=== PATIENT | female | born 1950 | race Caucasian/White ===

== ENCOUNTER 2016-11-23 06:55 | Inpatient (IN) | payer MEDICARE ==
[~2016-11-23] VITALS: Ht 157.5 cm; Wt 67.7 kg
[2016-11-23] VITALS (7 sets, daily range): BP systolic 146–180; BP diastolic 75–99
[~2016-11-23 06:55] MED LIST: /BACL20TA OR; /ESOM40CA OR; ACET65TA OR; ACTOPLUS MET 15/850 PO; AMBI5TAB OR; AMIT25TA2 OR; AMLO5TAB2 PO; ASPI81TA83 OR; CHLORTHALIDONE PO; CYMBALTA PO; DIOV160T5 OR; GLUC1000 OR; HALO5OI EXT; JANU100T PO; LOSA100T36 PO; METF500T PO; METO100T3 PO; MILKSUS OR; ONGL5TAB PO; REBIF SC; SIMV20TA2 OR; TOPRAL XL PO; VITAMIN D PO; ZETI10TA21 PO
[2016-11-23 07:44] LABS: BASO # 0.1 K/mm3 (0.0-0.2); BASO % 0.8 % (0.0-1.0); EOS # 0.2 K/mm3 (0.0-0.50); EOS % 2.5 % (0.0-3.0); LARGE UNSTAINED CELL # 0.2 K/mm3 (0.0-0.4); LARGE UNSTAINED CELL % 1.7 % (0.0-4.0); LYMPH # 1.8 K/mm3 (1.5-4.5); LYMPH % 19.9 % (24.0-44.0); MEAN CORPUSCULAR HEMOGLOBIN 30.2 pg (27.0-33.0); MEAN CORPUSCULAR HGB CONC 33.6 g/dl (32.0-36.5); MEAN CORPUSCULAR VOLUME 89.9 fl (80.0-96.0); MONO # 0.4 K/mm3 (0.0-0.8); MONO % 3.9 % (0.0-5.0); NEUTROPHILS # 6.3 K/mm3 (1.8-7.7); NEUTROPHILS % 71.2 % (36.0-66.0); PLATELET COUNT, AUTOMATED 244 k/mm3 (150-450); RED CELL DISTRIBUTION WIDTH 13.3 % (11.5-14.5); WHITE BLOOD COUNT 8.9 K/mm3 (4.0-10.0)
[2016-11-23 07:57] LABS: ANION GAP 11 MEQ/L (8-16); BLOOD UREA NITROGEN 14 MG/DL (7-18); CALCIUM LEVEL 9.6 MG/DL (8.8-10.2); CARBON DIOXIDE LEVEL 30 MEQ/L (21-32); CHLORIDE LEVEL 98 MEQ/L (98-107); CREATININE FOR GFR 1.39 MG/DL (0.55-1.02); GLOMERULAR FILTRATION RATE 40.3 (>45); GLUCOSE, FASTING 288 MG/DL (80-110); POTASSIUM SERUM 3.2 MEQ/L (3.5-5.1); SODIUM LEVEL 139 MEQ/L (136-145)
--- NOTE | 2016-11-23 08:40 | REP ---
Clinical: Chest pain. Comparison: 10/01/2015. Findings: Visualized mediastinum and cardiac silhouette are within normal limits and stable. Linear acute/chronic fibroatelectatic changes at the right base require correlation. The lung sepulveda are otherwise clear and without further consolidation, effusion, or pneumothorax. Skeletal structures intact. Impression: Acute versus chronic linear markings at the right lung base. Signed by Harley Merrill MD 11/23/2016 08:31 A
--- NOTE | 2016-11-23 08:42 | REP ---
Clinical: Syncope . Comparison: 12/06/2013. Findings: The ventricles, sulci, and cisterns are normal in position and appearance. Esparza-white differentiation is maintained. No acute intracranial hemorrhage, mass/mass effect, pathology or trauma/injury. No evidence for acute infarction. No extra-axial fluid collection. Calvarium is intact. Paranasal sinuses and mastoid air cells are clear. Impression: Normal noncontrast head CT. No evidence for acute intracranial pathology or trauma/injury. Signed by Harley Merrill MD 11/23/2016 08:34 A
[2016-11-23] MEDS: BACLOFEN 10 MG TAB PO SCH ×2 (09:00→20:25)
[2016-11-23] MEDS ORDERED: INDA125TA PO (09:56)
[2016-11-23] MEDS ORDERED: METF500T PO ×2 (09:56)
[2016-11-23] MEDS ORDERED: NEXI40CA PO (09:56)
[2016-11-23] MEDS ORDERED: LOSA100T36 PO (09:56)
[2016-11-23] MEDS ORDERED: BACL-67 PO (09:56)
[2016-11-23] MEDS ORDERED: ZETI10TA2 PO (09:56)
[2016-11-23] MEDS ORDERED: AMIT50TA PO (09:56)
[2016-11-23] MEDS ORDERED: METO-209 PO (09:56)
[2016-11-23] MEDS ORDERED: CYMB60CA3 PO (09:56)
--- NOTE | 2016-11-23 10:13 | ECGEPIP ---
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
[2016-11-23] MEDS ORDERED: DEXTROSE 50% 50 ML SYRINGE IV PRN (11:15)
[2016-11-23] MEDS ORDERED: GLUCAGON FOR INJ 1 MG VIAL (J1610) SC PRN (11:15)
[2016-11-23] MEDS ORDERED: GLUCOSE 4 GM CHEW TABLET PO PRN (11:15)
[2016-11-23] MEDS ORDERED: POTASSIUM CHLORIDE 10 MEQ SR TABLET PO ONE (11:15)
[2016-11-23] MEDS: HumaLOG INSULIN (NovoLOG) PER UNIT SC SCH ×3 (12:00→20:26)
--- NOTE | 2016-11-23 13:43 | HPE ---
DATE OF ADMISSION: 11/23/2016 PRIMARY CARE PROVIDER: Dr. Yonas Vernon PNEUMOLOGIST: Dr. Rutherford CHIEF COMPLAINT: Syncope. HISTORY OF PRESENT ILLNESS: This is a 66-year-old female patient with underlying medical history of type 2 diabetes, gastroesophageal reflux disease (GERD), hypertension, multiple sclerosis, osteoporosis, who presented with two episodes of syncope. As per patient, first episode occurred around a month ago when the patient was walking through the store of a well-known store with . Subsequently patient was standing a bit wobbly for 5-10 minutes. As per patient, she felt like she blacked out and was confused and did not know where she was, and also barely remembered the events. When the transfusion resolved, it took the patient 20-30 minutes to return back to baseline. It happened about a month ago. As per who was with her, the patient did not fall, did not hit the floor, but was standing there confused and not really moving. No urinary or bowel incontinence. Subsequently, the patient this morning on the morning of admission, the patient was getting out of bed, but subsequently was found on the floor in the kitchen by the . She was on the floor with the for approximately 30 minutes. She became more awake when the emergency medical services (EMS) arrived and took the patient under 30 minutes to return to baseline. At baseline, patient ambulates with a cane or walker. Patient denies any headache, lightheadedness. Denies any significant trauma. The did not witness any tonic clonic movement. No history of seizure. No vision change. The patient was warm and well-perfused when the found her. No tongue biting. No urinary or fecal incontinence. In the emergency room, the patient denies any focal weakness or deficit. Denies any focal vision change. Was concerned that she could potentially have a urinary tract infection. In the emergency room, the patient was also found to be mildly orthostatic positive. Patient reported recently started on a diuretic by her doctor for hypertension. Otherwise, patient has no other complaints. Denies any chest pain, pressure, or discomfort. Denies any fevers or chills. ALLERGIES: 1. CODEINE. 2. LEXAPRO. 3. PENICILLIN. 4. PENICILLIN CROSS REACTORS. 5. PROPOXYPHENE. 6. TRAMADOL. 7. AMBIEN. 8. ALENDRONATE. 9. IBUPROFEN. 10. METFORMIN. 11. JANUMET. 12. MEPERIDINE. PAST MEDICAL HISTORY: 1. Type 2 diabetes. 2. Gastroesophageal reflux disease (GERD). 3. Hypertension. 4. Multiple sclerosis. 5. Osteoporosis. PAST SURGICAL HISTORY: 1. Appendectomy. 2. Tubal ligation. 3. Jaw surgery. SOCIAL HISTORY: Patient lives at home, , former smoker quit 14 years ago 2-3 packs per day smoking for 20-30 years. Denies alcohol or illicit drug use. FAMILY HISTORY: Noncontributory, but does report family history of hypothyroidism. REVIEW OF SYSTEMS: Reported three episodes of syncope and confusion. Denies any headache. Reported during the episode the patient's vision blacked out. Denies any hearing change. Denies any nausea or vomiting. Denies any shortness of breath. Denies any chest pain, pressure, of discomfort. Denies any palpitations. Reported stomach upset. Denies any diarrhea or constipation. Has concerns for foul smelling urine. Denies any dysuria or hematuria. Denies lower extremity swelling. Denies depression or suicidality. HOME MEDICATIONS: - amitriptyline 50 mg by mouth at bedtime - baclofen 20 mg by mouth twice a day - Cymbalta 60 mg by mouth daily - Nexium 40 mg by mouth daily - Zetia 10 mg by mouth daily - indapamide 1.25 mg by mouth daily - losartan 100 mg by mouth daily - metformin 500 mg by mouth daily and 1000 mg by mouth every night - metoprolol succinate 100 mg by mouth daily PHYSICAL EXAMINATION: VITAL SIGNS: Blood pressure 120/67, pulse 85, respirations 18, temperature 97.3, pulse oximetry 96% on room air. GENERAL: The patient is alert, and oriented times three in no acute distress. HEENT: Normocephalic, atraumatic. PULMONARY: Bilaterally clear to auscultation. CARDIAC: Regular rate and rhythm; normal S1, S2. ABDOMEN: Soft, nontender, and nondistended. Positive bowel sounds. EXTREMITIES: No edema of bilateral lower extremities. NEUROLOGIC: Cranial nerves II-XII grossly intact. No focal deficits. Able to move all four extremities, orthostatic positive. EKG: Sinus rhythm at 79, left axis deviation. No significant ST segment changes. LABORATORY DATA: WBC 8.9, hemoglobin and hematocrit 12.7/37.7, platelets 244. Chemistry: Sodium 139, potassium 3.2, chloride 98, bicarbonate 30, BUN 14, creatinine 1.39, TSH 5.18, cardiac enzymes negative times one. ASSESSMENT AND PLAN: This is a 66-year-old female patient with underlying medical history of type 2 diabetes, gastroesophageal reflux disease (GERD), hypertension, multiple sclerosis, osteoporosis, who presented status post syncope. 1. Syncope, possibly secondary to a seizure. Neurology consulted. EEG, MRI has been ordered. Neuro checks. Seizure precautions. Fall precautions. Physical therapy. Followup orthostatic vital signs. 2. Orthostatic hypotension, possibly secondary to diuretics and dehydration. IV fluids for hydration. Followup orthostatic vital signs. 3. Hypokalemia. Holding diuretics. Supplement with potassium. 4. Acute kidney injury (CHERYL). IV fluids for hydration. Holding diuretics. Followup BUN and creatinine. 5. Hypertension. Continue losartan and metoprolol with holding parameters. Holding indapamide. 6. Depression. Continue home medications. 7. Diabetes type 2. Insulin as per protocol. Holding metformin. 8. Urinary tract infection. Levaquin. Followup cultures. 9. Multiple sclerosis. Physical therapy. Neurology consulted. Outpatient followup. 10. Gastroesophageal reflux disease (GERD). Continue proton pump inhibitor (PPI). 11. Deep vein thrombosis (DVT) prophylaxis. Heparin subcutaneous. DISPOSITION PLANNING: Pending urology consultation.
--- NOTE | 2016-11-23 14:07 | REP ---
Clinical: Syncope. Given history of multiple sclerosis. Technique: Standard axial, sagittal, and coronal T1, T2, and postcontrast sequencing of the brain. Findings: Mild age-related appearing periventricular leukomalacia and small T2 hyperintense foci are identified consistent with microvascular ischemic changes. No enhancing lesions are identified and there is no compelling evidence to support multiple sclerosis by current examination. There is no evidence for acute infarction. No obvious mass/mass effect, hemorrhage, or extra-axial collection. The ventricles are symmetric and normal. The sulci are unremarkable and normal for age. Impression: Mild age-related microvascular ischemic changes and periventricular leukomalacia. No abnormal enhancing lesions. No obvious compelling evidence to suggest multiple sclerosis by current examination. Signed by Harley Merrill MD 11/23/2016 01:58 P
--- NOTE | 2016-11-23 14:28 | EDDOCDS ---
Physician Documentation [facility] Name: Jossue Acosta Age: 66 yrs Sex: Female : 1950 Arrival Date: 11/23/2016 Time: 06:55 Bed 17 Private MD: Disposition: 11/23/16 09:31 Hospitalization ordered by Lidia Reynolds for Inpatient Admission. Preliminary diagnosis is Syncope and collapse. - Bed requested for PCU. - Status is Inpatient Admission. kc3 - Condition is Stable. - Problem is new. - Symptoms have improved. Historical: - Allergies: Codeine Sulfate (Rash); DarvonHallucinations; DemerolAnxiety; MotrinDiarrhea; PENICILLINS (Rash); - Home Meds: 1. amitriptyline 50 mg Oral tab nightly 2. amlodipine 5 mg Oral tab 1 tab once daily 3. baclofen 20 mg Oral tab twice a day 4. duloxetine 60 mg Oral cpDR 1 cap once daily 5. losartan 100 mg oral tab 1 tab once daily 6. metformin 500 mg Oral Tb24 1 TAB with breakfast / 2 tabs with dinner 7. metoprolol succinate 100 mg Tb24 1 tab once daily 8. Nexium 40 mg Oral cpDR 1 cap 2 times per day 9. Zetia 10 mg Oral tab 1 tab once daily 10. Diuretic oral tab after meals - PMHx: Diabetes - NIDDM: controlled; GERD; Hypertension; Multiple Sclerosis; Osteoporosis; - PSHx: Appendectomy; Tubal ligation; jaw surgery; - Social history: Smoking status: Patient states former smoker of tobacco. No barriers to communication noted, The patient speaks fluent Kinyarwanda. - Family history: Not pertinent. - : The pt / caregiver states he / she is not on anticoagulants. Home medication list is obtained from the patient, [employer] import data. - Exposure Risk Screening:: None identified. Vital Signs: 11/23 07:07 BP 120 / 67; Pulse 85; Resp 18; Temp 97.3(O); Pulse Ox 96% on R/A; Weight 68.04 kg / dem1 150 lbs (R); Height 5 ft. 2 in. (157.48 cm) (R); 08:11 BP 118 / 79 Supine; Pulse 78; Resp 20; dls 08:11 BP 112 / 76 Sitting; Pulse 79; Resp 20; dls 08:12 BP 103 / 59 Standing; Pulse 90; Resp 20; dls 09:01 Pulse 80 MON; Pulse Ox 95% ; kc3 09:02 BP 129 / 64 (auto/); kc3 10:21 Pulse 76 MON; Pulse Ox 96% ; kc3 10:22 BP 146 / 80 (auto/); kc3 12:23 Pulse 78 MON; Pulse Ox 95% ; kc3 12:24 BP 167 / 93 (auto/); kc3 12:29 Pulse 82 MON; Pulse Ox 95% ; kc3 13:33 BP 194 / 91 (auto/); kc3 13:35 BP 173 / 99 (auto/); Pulse 81; Resp 18; Temp 97.7; Pulse Ox 97% on R/A; kc3 13:56 BP 172 / 98 (man/); kc3 14:03 BP 184 / 91 (auto/); kc3 14:03 Pulse 84 MON; Pulse Ox 96% ; kc3 14:09 BP 184 / 92 LA Sitting (man/reg); nb2 14:10 Pulse 84 MON; Resp 18; Temp 98.3(O); Pulse Ox 96% on R/A; kc3 07:07 Body Mass Index 27.44 (68.04 kg, 157.48 cm) dem1 MDM: 07:29 [employer] Apprentice/Pulse Ox/q 15 min VS ordered. fg 07:29 Accucheck ordered. fg 07:29 IV Saline Lock ordered. fg 07:29 Orthostatic VS ordered. fg 07:29 Rhythm Strip to chart ordered. fg 07:30 Basic Metabolic Profile Ordered. EDMS 07:31 CBC with Diff Ordered. EDMS 07:31 Cardiac Injury Profile Ordered. EDMS 07:31 Thyroid Stimulating Hormone Ordered. EDMS 07:31 Troponin Ordered. EDMS 07:31 Urinalysis Ordered. EDMS 07:31 Urine Culture Ordered. EDMS 07:31 Chest, 1 View Ordered. EDMS 07:31 CT Head Without Contrast Ordered. EDMS 07:31 ECG WITH READING ER PHYS+CARDIAG ordered. EDMS 07:31 BED REQUEST+ADM ordered. EDMS 08:11 Financial registration complete. lg 08:15 Fingerstick Blood Sugar Ordered. EDMS 08:16 NS 0.9% 500 ml IV at bolus once ordered. fg 08:30 [facility] Payment Agreement was scanned into [employer] and attached to record. lg 11:08 CARDIAC MARKER PANEL Ordered. EDMS 11:08 BASIC METABOLIC PROFILE Ordered. EDMS 11:08 MAGNESIUM LEVEL Ordered. EDMS 11:11 MRI Brain W/O FOLL BY WITH Ordered. EDMS 11:15 CONSISTENT CARBOHYDRATES ordered. EDMS 11:15 PHYSICAL THERAPY EVAL & TREAT ordered. EDMS 11:16 Admission / Observation Status ordered. EDMS 14:23 THYROID PROFILE Ordered. EDMS Point of Care Testing: Blood Glucose: 08:09 Blood Glucose: 326 mg/dL; dls Ranges: Administered Medications: :26 Drug: NS 0.9% 500 ml [sodium chloride 0.9 % intravenous solution] Route: IV; Rate: dls bolus; Site: right antecubital; 12:00 Follow up: IV Status: Completed infusion kc3 Signatures: Dispatcher [employer] EDMS Katarina Delacruz RN RN dls Lisandra Resendiz, Reg Reg lg Breanne Ricks MD MD fg Crane, Kelsi, RN RN kc3 Elham Talley RN RN lmg The chart was reviewed and I authenticate all verbal orders and agree with the evaluation and treatment provided.Corrections: (The following items were deleted from the chart) 13:38 11:08 THYROID PROFILE ordered. EDMS EDMS 14:14 13:39 THYROID PROFILE ordered. EDMS EDMS Attachments: 08:30 [facility] Payment Agreement lg MTDD
--- NOTE | 2016-11-23 14:28 | EDDOCDS ---
Nurse's Notes [facility] Name: Jossue Mcdowell Age: 66 yrs Sex: Female : 1950 Arrival Date: 11/23/2016 Time: 06:55 Bed 17 Private MD: Diagnosis: Syncope and collapse Presentation: 11/23 07:02 Presenting complaint: EMS states: Pt presents via EMS after pt got up this morning and dls the next thing she knew she woke up on the kitchen floor has no recall of events, Pt has has similar sx before. Pt denies any injuries family wants to get her checked out. Adult Sepsis Screening: Patient has new or worsening altered mentation (1 point). Systolic blood pressure is greater than 100. Patient has a qSOFA score of 1- Negative Sepsis Screen. Suicide/Homicide risk assessment- the patient denies having any suicidal and/or homicidal ideations and does not present with any other emotional, behavioral or mental health complaints. 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 Transition of care: patient was not received from another setting of care. 07:02 Acuity: JAGRUTI Level 3 dls 07:02 Method Of Arrival: Ambulance dls Triage Assessment: 07:10 General: Appears in no apparent distress, well developed, well nourished, well groomed, dls Behavior is cooperative. Pain: Pain currently is 10 out of 10 on a pain scale. Respiratory: No deficits noted. GI: No deficits noted. : No deficits noted. Derm: No deficits noted. Musculoskeletal: No deficits noted. Injury Description: No known injury. Historical: - Allergies: Codeine Sulfate (Rash); DarvonHallucinations; DemerolAnxiety; MotrinDiarrhea; PENICILLINS (Rash); - Home Meds: 1. amitriptyline 50 mg Oral tab nightly 2. amlodipine 5 mg Oral tab 1 tab once daily 3. baclofen 20 mg Oral tab twice a day 4. duloxetine 60 mg Oral cpDR 1 cap once daily 5. losartan 100 mg oral tab 1 tab once daily 6. metformin 500 mg Oral Tb24 1 TAB with breakfast / 2 tabs with dinner 7. metoprolol succinate 100 mg Tb24 1 tab once daily 8. Nexium 40 mg Oral cpDR 1 cap 2 times per day 9. Zetia 10 mg Oral tab 1 tab once daily 10. Diuretic oral tab after meals - PMHx: Diabetes - NIDDM: controlled; GERD; Hypertension; Multiple Sclerosis; Osteoporosis; - PSHx: Appendectomy; Tubal ligation; jaw surgery; - Social history: Smoking status: Patient states former smoker of tobacco. No barriers to communication noted, The patient speaks fluent Lithuanian. - Family history: Not pertinent. - : The pt / caregiver states he / she is not on anticoagulants. Home medication list is obtained from the patient, [employer] import data. - Exposure Risk Screening:: None identified. Screenin:10 Screening information is obtained from the patient. Fall risk: At risk due to gait dls disturbance. Assistance ADL's: requires no assistance with activities of daily living. Abuse/DV Screen: The patient / caregiver reports he/she is:. Nutritional screening: No deficits noted. Advance Directives: Currently, there is no health care proxy. There is no active DNR order. There is no living will. There is no Power of Assurance Sourcing Manager. Advance directive information has not previously been placed in an [facility] medical record. home support is adequate. Assessment: 08:09 General: Appears in no apparent distress, well developed, well nourished, well groomed, dls Behavior is cooperative. Pain: Pain currently is 10 out of 10 on a pain scale. 08:13 General: Orthostatic vs completed pt became dizzy with sitting and standing MD grullon notified.. 09:00 General: Appears in no apparent distress, comfortable, Behavior is appropriate for age, kc3 cooperative. Pain: Denies pain. Neurological: Level of Consciousness is awake, alert, obeys commands, Oriented to person, place, time. Respiratory: Respiratory effort is even, unlabored, Respiratory pattern is regular, symmetrical. 09:52 General: Admitting provider at bedside. . kc3 10:30 General: Appears in no apparent distress, comfortable, Behavior is appropriate for age, kc3 cooperative. Neurological: Level of Consciousness is awake, alert, obeys commands, Oriented to person, place, time. Cardiovascular: Rhythm is regular. Respiratory: Respiratory effort is even, unlabored, Respiratory pattern is regular, symmetrical. Derm: Skin is pink, warm & dry. Musculoskeletal: Circulation, motion, and sensation intact. 11:00 General: Appears in no apparent distress, comfortable, Behavior is appropriate for age, kc3 cooperative. General: Admitting nurse at bedside. . Neurological: Level of Consciousness is awake, alert, obeys commands, Oriented to person, place, time. Cardiovascular: Rhythm is regular. Respiratory: Respiratory effort is even, unlabored, Respiratory pattern is regular, symmetrical. Derm: Skin is pink, warm & dry. Musculoskeletal: Circulation, motion, and sensation intact. 11:57 General: Appears in no apparent distress, comfortable, Behavior is appropriate for age, kc3 cooperative, Pt given water per request. . Neurological: Level of Consciousness is awake, alert, obeys commands, Oriented to person, place, time. Cardiovascular: Rhythm is regular. Respiratory: Respiratory effort is even, unlabored, Respiratory pattern is regular, symmetrical. Derm: Skin is pink, warm & dry. Musculoskeletal: Circulation, motion, and sensation intact. 12:37 General: Appears in no apparent distress, comfortable, Behavior is appropriate for age, kc3 cooperative, Pt ambulated to restroom and back to bed with no distress noted. Pt transported to MRI by house transport. . Neurological: Level of Consciousness is awake, alert, obeys commands, Oriented to person, place, time. Cardiovascular: Rhythm is regular. Respiratory: Respiratory effort is even, unlabored, Respiratory pattern is regular, symmetrical. Derm: Skin is pink, warm & dry. Musculoskeletal: Range of motion intact in all extremities. 13:37 General: Appears in no apparent distress, comfortable, Behavior is appropriate for age, kc3 cooperative, Pt returned from MRI. Pt given water per request. . Neurological: Level of Consciousness is awake, alert, obeys commands, Oriented to person, place, time. Cardiovascular: Rhythm is regular. Respiratory: Respiratory effort is even, unlabored, Respiratory pattern is regular, symmetrical. Derm: Skin is pink, warm & dry. Musculoskeletal: Circulation, motion, and sensation intact. 14:03 General: Appears in no apparent distress, comfortable, Behavior is appropriate for age, kc3 cooperative. Neurological: Level of Consciousness is awake, alert, obeys commands, Oriented to person, place, time. Cardiovascular: Rhythm is regular. Respiratory: Respiratory effort is even, unlabored, Respiratory pattern is regular, symmetrical. Derm: Skin is pink, warm & dry. Musculoskeletal: Circulation, motion, and sensation intact. Vital Signs: 07:07 BP 120 / 67; Pulse 85; Resp 18; Temp 97.3(O); Pulse Ox 96% on R/A; Weight 68.04 kg (R); dem1 Height 5 ft. 2 in. (157.48 cm) (R); 08:11 BP 118 / 79 Supine; Pulse 78; Resp 20; dls 08:11 BP 112 / 76 Sitting; Pulse 79; Resp 20; dls 08:12 BP 103 / 59 Standing; Pulse 90; Resp 20; dls 09:01 Pulse 80 MON; Pulse Ox 95% ; kc3 09:02 BP 129 / 64 (auto/); kc3 10:21 Pulse 76 MON; Pulse Ox 96% ; kc3 10:22 BP 146 / 80 (auto/); kc3 12:23 Pulse 78 MON; Pulse Ox 95% ; kc3 12:24 BP 167 / 93 (auto/); kc3 12:29 Pulse 82 MON; Pulse Ox 95% ; kc3 13:33 BP 194 / 91 (auto/); kc3 13:35 BP 173 / 99 (auto/); Pulse 81; Resp 18; Temp 97.7; Pulse Ox 97% on R/A; kc3 13:56 BP 172 / 98 (man/); kc3 14:03 BP 184 / 91 (auto/); kc3 14:03 Pulse 84 MON; Pulse Ox 96% ; kc3 14:09 BP 184 / 92 LA Sitting (man/reg); nb2 14:10 Pulse 84 MON; Resp 18; Temp 98.3(O); Pulse Ox 96% on R/A; kc3 07:07 Body Mass Index 27.44 (68.04 kg, 157.48 cm) [facility] Vitals: 07:07 Log In Time N/A - ambulance arrival. [facility] ED Course: 06:56 Patient visited by Paige Jones, Stevedore Hold. deg 06:56 Patient moved to Waiting deg 06:56 Patient moved to 17 deg 07:06 Triage Initiated dls 07:08 Patient visited by Dipika Salinas. dem1 07:10 Patient visited by Dipika Salinas. [facility] 07:10 Pt greeted and oriented to ED. Patient advised of names of staff involved in care, [facility] location of call [place], wait times and NPO status. Patient has correct armband on for positive identification. Placed in gown. Bed in low position. Call light in reach. Side rails up X2. secured entrance monitor on. Pulse ox on. NIBP on. 07:10 Inserted saline lock: 20 gauge in right antecubital area and blood collected. The hs1 patient tolerated the procedure well. 07:14 Breanne Ricks MD is Attending Physician. fg 07:15 Patient visited by Breanne Ricks MD. fg 07:38 Patient visited by Sintia Parker PCA. ct3 07:38 Basic Metabolic Profile Sent. dls 07:38 EKG done. (by ED staff). Reviewed by Breanne Ricks MD. ct3 07:38 CBC with Diff Sent. dls 07:38 Cardiac Injury Profile Sent. dls 07:39 Thyroid Stimulating Hormone Sent. dls 07:39 Troponin Sent. dls 08:10 The patient / caregiver is instructed regarding the plan of care and ED course. dls 08:10 No procedures done that require assistance. dls 08:30 [facility] Payment Agreement was scanned into [employer] and attached to record. lg 08:44 Chest, 1 View Returned. EDMS 08:44 CT Head Without Contrast Returned. EDMS 08:45 Patient visited by Maryann Vann. nb2 08:57 Arlene Medina,RN is Primary Nurse. kc3 09:31 Patient visited by Arlene Medina,ROSAURA. kc3 09:31 Lidia Reynolds is Hospitalizing Provider. fg 09:52 Patient moved to Admit Hold ml6 10:20 EKG-ADULT Returned. EDMS 12:38 Patient moved to MRI kc3 13:38 Patient visited by Arlene Medina,ROSAURA. kc3 13:38 Patient moved to 17 kc3 14:09 Patient visited by Maryann Vann. nb2 14:19 MRI Brain W/O FOLL BY WITH Returned. EDMS Administered Medications: 08:26 Drug: NS 0.9% 500 ml [sodium chloride 0.9 % intravenous solution] Route: IV; Rate: dls bolus; Site: right antecubital; 12:00 Follow up: IV Status: Completed infusion kc3 Point of Care Testing: Blood Glucose: 08:09 Blood Glucose: 326 mg/dL; dls Ranges: Order Results: Lab Order: Basic Metabolic Profile; SPEC'M 11/23/16 07:16 Test: GLUCOSE, FASTING; Value: 288; Range: 80-110; Abnormal: Above high normal; Units: MG/DL; Status: F Test: BLOOD UREA NITROGEN; Value: 14; Range: 7-18; Units: MG/DL; Status: F Test: CREATININE FOR GFR; Value: 1.39; Range: 0.55-1.02; Abnormal: Above high normal; Units: MG/DL; Status: F Test: GLOMERULAR FILTRATION RATE; Value: 40.3; Range: >45; Abnormal: Below low normal; Status: F Test: SODIUM LEVEL; Value: 139; Range: 136-145; Units: MEQ/L; Status: F Test: POTASSIUM SERUM; Value: 3.2; Range: 3.5-5.1; Abnormal: Below low normal; Units: MEQ/L; Status: F Test: CHLORIDE LEVEL; Value: 98; Range: 98-107; Units: MEQ/L; Status: F Test: CARBON DIOXIDE LEVEL; Value: 30; Range: 21-32; Units: MEQ/L; Status: F Test: ANION GAP; Value: 11; Range: 8-16; Units: MEQ/L; Status: F Test: CALCIUM LEVEL; Value: 9.6; Range: 8.8-10.2; Units: MG/DL; Status: F Test Note: ; Units are mL/min/1.73 m2 Chronic Kidney Disease Staging per NKF: Stage I & II GFR >=60 Normal to Mildly Decreased Stage III GFR 30-59 Moderately Decreased Stage IV GFR 15-29 Severely Decreased Stage V GFR <15 Very Little GFR Left ESRD GFR <15 on SQL DATA ARCHITECT Lab Order: CBC with Diff; SPEC'M 11/23/16 07:16 Test: WHITE BLOOD COUNT; Value: 8.9; Range: 4.0-10.0; Units: K/mm3; Status: F Test: RED BLOOD COUNT; Value: 4.20; Range: 4.00-5.40; Units: M/mm3; Status: F Test: HEMOGLOBIN; Value: 12.7; Range: 12.0-16.0; Units: g/dl; Status: F Test: HEMATOCRIT; Value: 37.7; Range: 36.0-47.0; Units: %; Status: F Test: MEAN CORPUSCULAR VOLUME; Value: 89.9; Range: 80.0-96.0; Units: fl; Status: F Test: MEAN CORPUSCULAR HEMOGLOBIN; Value: 30.2; Range: 27.0-33.0; Units: pg; Status: F Test: MEAN CORPUSCULAR HGB CONC; Value: 33.6; Range: 32.0-36.5; Units: g/dl; Status: F Test: RED CELL DISTRIBUTION WIDTH; Value: 13.3; Range: 11.5-14.5; Units: %; Status: F Test: PLATELET COUNT, AUTOMATED; Value: 244; Range: 150-450; Units: k/mm3; Status: F Test: NEUTROPHILS %; Value: 71.2; Range: 36.0-66.0; Abnormal: Above high normal; Units: %; Status: F Test: LYMPH %; Value: 19.9; Range: 24.0-44.0; Abnormal: Below low normal; Units: %; Status: F Test: MONO %; Value: 3.9; Range: 0.0-5.0; Units: %; Status: F Test: EOS %; Value: 2.5; Range: 0.0-3.0; Units: %; Status: F Test: BASO %; Value: 0.8; Range: 0.0-1.0; Units: %; Status: F Test: LARGE UNSTAINED CELL %; Value: 1.7; Range: 0.0-4.0; Units: %; Status: F Test: NEUTROPHILS #; Value: 6.3; Range: 1.8-7.7; Units: K/mm3; Status: F Test: LYMPH #; Value: 1.8; Range: 1.5-4.5; Units: K/mm3; Status: F Test: MONO #; Value: 0.4; Range: 0.0-0.8; Units: K/mm3; Status: F Test: EOS #; Value: 0.2; Range: 0.0-0.50; Units: K/mm3; Status: F Test: BASO #; Value: 0.1; Range: 0.0-0.2; Units: K/mm3; Status: F Test: LARGE UNSTAINED CELL #; Value: 0.2; Range: 0.0-0.4; Units: K/mm3; Status: F Lab Order: Cardiac Injury Profile; SPEC'M 11/23/16 07:16 Test: CPK CREATINE PHOSPHOKINASE; Value: 67; Range: 26-192; Units: U/L; Status: F Test: CK-MB VALUE MASS; Value: 1.0; Range: 0.0-3.6; Units: NG/ML; Status: F Test: MB/CK RELATIVE INDEX; Value: 1.49; Range: < OR =4; Status: F Test Note: ; DIAGNOSIS CRITERIA MMB ng/ml Relative Index (RI) NON-AMI < or = 5 N/A ESPARZA ZONE > 5 < or = 4 AMI > 5 > 4 Lab Order: Thyroid Stimulating Hormone; [facility] 11/23/16 07:16 Test: THYROID STIMULATING HORMONE; Value: 5.180; Range: 0.358-3.740; Abnormal: Above high normal; Units: uIU/ML; Status: F Lab Order: Troponin; [facility] 11/23/16 07:16 Test: TROPONIN I; Value: < 0.02; Range: < 0.10; Units: NG/ML; Status: F Test Note: ; Troponin I Reference Interval for AtHoc LOCI: 99th Percentile= 0.00-0.045 ng/ml Risk Stratification: <= 0.10 ng/ml Decreased Risk for Adverse Clinical Events. 0.10-1.50 ng/ml Increased Risk for Adverse Clinical Events. Evaluation of additional criterion and/or repeat testing in 2-6 hours is suggested to rule out myocardial damage. >= 1.50 ng/ml Indicative of Myocardial Injury. Lab Order: Urinalysis; [facility] 11/23/16 08:19 Test: APPEARANCE, URINE; Value: CLOUDY; Range: CLEAR; Abnormal: Above high normal; Status: F Test: COLOR, URINE; Value: YELLOW; Range: YELLOW; Status: F Test: PH,URINE; Value: 6.0; Range: 5.0-9.0; Units: UNITS; Status: F Test: SPECIFIC GRAVITY URINE AUTO; Value: 1.013; Range: 1.002-1.035; Status: F Test: PROTEIN, URINE AUTO; Value: NEGATIVE; Range: NEGATIVE; Units: mg/dL; Status: F Test: GLUCOSE, URINE (UA) AUTO; Value: 2+; Range: NEGATIVE; Abnormal: Above high normal; Units: mg/dL; Status: F Test: KETONE, URINE AUTO; Value: NEGATIVE; Range: NEGATIVE; Units: mg/dL; Status: F Test: UROBILINOGEN, URINE AUTO; Value: 0.2; Range: 0.0-2.0; Units: mg/dL; Status: F Test: BILIRUBIN, URINE AUTO; Value: NEGATIVE; Range: NEGATIVE; Status: F Test: NITRITE, URINE AUTO; Value: NEGATIVE; Range: NEGATIVE; Status: F Test: LEUKOCYTE ESTERASE, URINE AUTO; Value: 3+; Range: NEGATIVE; Abnormal: Above high normal; Status: F Test: BLOOD, URINE BLOOD; Value: 1+; Range: NEGATIVE; Abnormal: Above high normal; Status: F Test: WBC, URINE AUTO; Value: 174; Range: 0-3; Abnormal: Above high normal; Units: /HPF; Status: F Test: RBC, URINE AUTO; Value: 13; Range: 0-3; Abnormal: Above high normal; Units: /HPF; Status: F Test: BACTERIA, URINE AUTO; Value: 2+; Range: NEGATIVE; Abnormal: Above high normal; Status: F Test: SQUAMOUS EPITHELIAL CELL UR AU; Value: 6; Range: 0-6; Units: /HPF; Status: F Test: HYALINE CAST, URINE AUTO; Value: 0; Range: 0-1; Units: /LPF; Status: F Lab Order: Fingerstick Blood Sugar; SPEC'M 11/23/16 08:01 Test: BEDSIDE GLUCOSE; Value: 326; Range: 80-115; Abnormal: Above high normal; Units: MG/DL; Status: F Radiology Order: CT Head Without Contrast Test: CT Head Without Contrast REASON FOR EXAMINATION: Syncope; Clinical: Syncope .; ; Comparison: 12/06/2013.; ; Findings:; The ventricles, sulci, and cisterns are normal in position and appearance.; Esparza-white differentiation is maintained. No acute intracranial hemorrhage,; mass/mass effect, pathology or trauma/injury. No evidence for acute infarction.; No extra-axial fluid collection. Calvarium is intact. Paranasal sinuses and; mastoid air cells are clear.; ; Impression:; Normal noncontrast head CT.; No evidence for acute intracranial pathology or trauma/injury.; ; ; Signed by; Harley Merrill MD 11/23/2016 08:34 A; Radiology Order: Chest, 1 View Test: Chest, 1 View REASON FOR EXAMINATION: Chest Pain; Clinical: Chest pain.; ; Comparison: 10/01/2015.; ; Findings:; Visualized mediastinum and cardiac silhouette are within normal limits and; stable. Linear acute/chronic fibroatelectatic changes at the right base require; correlation. The lung sepulveda are otherwise clear and without further; consolidation, effusion, or pneumothorax. 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 Given history of multiple sclerosis.; ; Technique: Standard axial, sagittal, and coronal T1, T2, and postcontrast; sequencing of the brain.; ; Findings:; Mild age-related appearing periventricular leukomalacia and small T2 hyperintense; foci are identified consistent with microvascular ischemic changes. No enhancing; lesions are identified and there is no compelling evidence to support multiple; sclerosis by current examination. There is no evidence for acute infarction. No; obvious mass/mass effect, hemorrhage, or extra-axial collection. The ventricles; are symmetric and normal. The sulci are unremarkable and normal for age.; ; Impression:; Mild age-related microvascular ischemic changes and periventricular; leukomalacia.; No abnormal enhancing lesions.; No obvious compelling evidence to suggest multiple sclerosis by current; examination.; ; ; Signed by; Harley Merrill MD 11/23/2016 01:58 P; Outcome: 09:31 Decision to Hospitalize by Provider. fg 11:59 CT Study completed. kc3 14:03 Discharge Assessment: Patient awake, alert and oriented x 3. No cognitive and/or kc3 functional deficits noted. Patient verbalized understanding of disposition instructions. patient administered narcotics - no. The following High Risk Discharge criteria are identified: None. Admitted to PCU accompanied by nurse, via stretcher, on monitor, with chart. Condition: stable. Admission hand-off: Report Faxed Fax receipt verified by ROSAURA De La Paz . Property :Personal belongings accompany Pt. 14:27 Patient left the ED. kc3 Signatures: Dispatcher [employer] EDMS Paige Jones, Stevedore Hold Unit deg Katarina Delacruz RN RN dls Lisandra Resendiz, Reg Reg lg Dhiraj Gee RN RN ml6 Deann Servin RN RN hs1 Sintia Parker, VP FOUNDATION VP FOUNDATION ct3 Dipika Salinas dem1 Breanne Ricks MD MD fg Arlene Medina RN RN kc3 Maryann Vann2 Corrections: (The following items were deleted from the chart) 07:10 07:07 Pulse 85bpm; Resp 18bpm; Pulse Ox 96% RA; Temp 97.3F Oral; 68.04 kg Reported; dem1 Height 5 ft. 2 in. Reported; BMI: 27.4; dem1 MTDD
[2016-11-23] MEDS ORDERED: LevoFLOXacin 500 MG in APPROPRIATE DILUENT 1 EA IV ONE (15:00)
[2016-11-23] MEDS: LOSARTAN 50 MG TAB PO SCH (15:09)
[2016-11-23] MEDS: DOCUSATE SODIUM 100 MG CAP PO SCH ×2 (15:10→20:25)
[2016-11-23] MEDS: DULoxetine 30 MG CAP (CYMBALTA) PO SCH (15:10)
[2016-11-23] MEDS: METOPROLOL SUCC (TopROL XL) 100MG *XL* TAB PO SCH (15:11)
[2016-11-23] MEDS: PANTOPRAZOLE 40MG TAB (PROTONIX) PO SCH (15:11)
[2016-11-23] MEDS: EZETIMIBE 10 MG TAB (ZETIA) PO SCH (15:11)
[2016-11-23] MEDS: NS 1,000 ML IV SCH (15:12)
[2016-11-23 15:24] LABS: CREATININE FOR GFR 1.03 MG/DL (0.55-1.02); GLOMERULAR FILTRATION RATE 56.9 (>45); MAGNESIUM LEVEL 1.7 MG/DL (1.8-2.4); POTASSIUM SERUM 3.2 MEQ/L (3.5-5.1); THYROXINE (T4) 10.6 UG/DL (4.5-12.0)
[2016-11-23] MEDS: AMITRIPTYLINE 50 MG TAB PO SCH (20:25)
[2016-11-23] MEDS: HEPARIN SOD (PORCINE) 5000 UNITS/ML VIAL SC SCH (20:25)
[2016-11-24] VITALS (8 sets, daily range): BP systolic 128–200; BP diastolic 64–110
[2016-11-24] MEDS ORDERED: ACETAMINOPHEN TAB 650MG DOSE (2X325MG) PO ONE (01:00)
[2016-11-24] MEDS: NS 1,000 ML IV SCH (04:28)
[2016-11-24] MEDS ORDERED: hydrALAZINE INJ 20 MG/ML VIAL IV ONE ×2 (04:45→06:15)
[2016-11-24 05:38] LABS: MEAN CORPUSCULAR HEMOGLOBIN 29.4 pg (27.0-33.0); MEAN CORPUSCULAR HGB CONC 33.3 g/dl (32.0-36.5); MEAN CORPUSCULAR VOLUME 88.1 fl (80.0-96.0); RED CELL DISTRIBUTION WIDTH 14.2 % (11.5-14.5); WHITE BLOOD COUNT 7.1 K/mm3 (4.0-10.0)
[2016-11-24 05:55] LABS: CALCIUM LEVEL 9.1 MG/DL (8.8-10.2); CREATININE FOR GFR 1.03 MG/DL (0.55-1.02); GLOMERULAR FILTRATION RATE 56.9 (>45); MAGNESIUM LEVEL 1.5 MG/DL (1.8-2.4); POTASSIUM SERUM 3.2 MEQ/L (3.5-5.1)
--- NOTE | 2016-11-24 07:30 | CR ---
DATE OF CONSULTATION: 11/23/2016 REFERRING PHYSICIAN: Dr. Lidia Reynolds HISTORY OF PRESENT ILLNESS: Jossue Acosta is a 66-year-old woman with a history of type 2 diabetes, acid reflux, multiple sclerosis who had two episodes of passing out. The patient has a history of multiple sclerosis for which she has been following with Dr. Klein in [place], [place]. She was on Rebif and Tecfidera in the past. Her first episode of passing out occurred a month ago when she was at a store. She was standing next to a cart. She kept holding her cart when she did not respond to her and felt confused for a couple of minutes. She felt as if she blacked out and was confused. She did not know where she was. It took her 20-30 minutes to come back to her normal after her confusion improved. She did not fall or hit the floor. She kept standing. There was no tongue biting, urinary incontinence. This morning the patient was getting out of bed and went to the kitchen and was found on the floor by her as he heard her fall down. She was laying on the floor of the kitchen. Her saw her awake, talking but she did not make sense, it lasted for one-half an hour. She does not have any recollection. She denies any headaches, neck or back pain. She denies any head injuries. She denies any dysphagia, no diplopia, no urinary incontinence. PAST MEDICAL HISTORY: 1. Multiple sclerosis. 2. Type 2 diabetes. 3. Hypertension. 4. Osteoporosis. 5. Acid reflux. PAST SURGICAL HISTORY: 1. Appendectomy. 2. Tubal ligation. 3. Jaw surgery. ALLERGIES: CODEINE, LEXAPRO, PENICILLIN, TRAMADOL, AMBIEN, ALENDRONATE, IBUPROFEN, METFORMIN, JANUMET, DEMEROL, BACLOFEN. SOCIAL HISTORY: She lives with her . She is a former smoker. She used to smoke 2-3 packs per day for 20-30 years. She rarely uses a cane. FAMILY HISTORY: Her daughter had seizures in her childhood up to her teenage years. REVIEW OF SYSTEMS: All systems are reviewed and are found to be noncontributory as mentioned in the history of present illness. PHYSICAL EXAMINATION: VITAL SIGNS: Pulse 87, blood pressure 165/85, temperature 98.6, respirations 18. HEART: Regular rate and rhythm. LUNGS: Clear to auscultation. ABDOMEN: Soft, nontender, nondistended. NEUROLOGY EXAM: The patient is awake, alert and oriented to place, person and time. Normal speech, comprehension and repetition. Extraocular muscles are intact. No facial weakness. Tongue and uvula are midline. 5/5 strength in all four extremities. Deep tendon reflexes 2+ throughout. Normal sensation. Normal gait. ASSESSMENT: 1. Episodes of altered mentation and speech. 2. Concern for complex partial seizures. 3. Presyncope and syncope are in the differential diagnoses. 4. History of possible multiple sclerosis. PLAN: 1. Electroencephalogram (EEG). 2. Carotid ultrasound. 3. Aspirin 81 mg by mouth daily. 4. The patient will followup with her neurologist, Dr. Sales in [place].
[2016-11-24] MEDS: HumaLOG INSULIN (NovoLOG) PER UNIT SC SCH ×4 (08:09→21:00)
[2016-11-24] MEDS: LOSARTAN 50 MG TAB PO SCH (08:10)
[2016-11-24] MEDS: DULoxetine 30 MG CAP (CYMBALTA) PO SCH (08:10)
[2016-11-24] MEDS: BACLOFEN 10 MG TAB PO SCH ×2 (08:10→20:23)
[2016-11-24] MEDS: METOPROLOL SUCC (TopROL XL) 100MG *XL* TAB PO SCH (08:11)
[2016-11-24] MEDS: DOCUSATE SODIUM 100 MG CAP PO SCH ×2 (08:12→20:23)
[2016-11-24] MEDS: PANTOPRAZOLE 40MG TAB (PROTONIX) PO SCH (08:12)
[2016-11-24] MEDS: EZETIMIBE 10 MG TAB (ZETIA) PO SCH (08:12)
[2016-11-24] MEDS: HEPARIN SOD (PORCINE) 5000 UNITS/ML VIAL SC SCH ×2 (08:13→20:22)
[2016-11-24] MEDS ORDERED: MAG SULF 1GM/100ML (MAG RUN) 1 GM in APPROPRIATE DILUENT 1 EA IV ONE (08:30)
[2016-11-24] MEDS ORDERED: POTASSIUM CHLORIDE 10 MEQ SR TABLET PO ONE (09:00)
[2016-11-24] MEDS: amLODIPine 10 MG TAB PO SCH (10:30)
[2016-11-24] MEDS: MAGNESIUM OXIDE 400 MG TAB (MAG-OX) PO SCH ×2 (10:30→20:23)
[2016-11-24] MEDS: ACETAMINOPHEN TAB 650MG DOSE (2X325MG) PO PRN ×2 (10:30→23:53)
[2016-11-24] MEDS: ASPIRIN 81 MG ENTERIC TAB PO SCH (10:30)
--- NOTE | 2016-11-24 14:39 | REP ---
CAROTID ULTRASOUND: Real-time ultrasound evaluation and duplex Doppler interrogation of the extracranial carotid vasculature is performed. There is mild to moderate plaquing and narrowing in both carotid bulbs extending into the internal and external carotid arteries. Luminal narrowing is less than 50%. There is no evidence of hemodynamically significant stenosis of either internal carotid artery. Normal flow velocities are seen. The vertebral arteries demonstrate normal direction of flow. RIGHT LEFT Peak systolic velocity ICA 93.4 cm/s 68.5 cm/s End diastolic velocity ICA 36.1 cm/s 26.8 cm/s Peak systolic velocity CCA 139.7 cm/s 124.4 cm/s Peak systolic velocity ECA 121.1 cm/s 133.7 cm/s ICA/CCA ratio 0.67 0.55 IMPRESSION: Bilateral luminal narrowing of the internal carotid arteries less than 50%. No evidence of hemodynamically significant stenosis. Signed by Jabari Esparza MD 11/24/2016 10:30 A
[2016-11-24] MEDS ORDERED: LevoFLOXacin 250 MG in APPROPRIATE DILUENT 1 EA IV SCH (15:00)
--- NOTE | 2016-11-24 16:24 | IPN ---
DATE: 11/24/2016 The patient was seen and examined. No acute events overnight. Reporting improvement. Denies any lightheadedness, vision change, hearing change. Denies any fevers or chills. Denies any chest pain, pressure or discomfort. VITAL SIGNS: Temperature 96.6, pulse 108, respirations 22, blood pressure 154/80, pulse oximetry 95% on room air. MRI of the brain showed mild age related microvascular ischemic changes and periventricular leukomalacia. No abnormal enhancing lesions. No obvious compelling evidence suggestive of multiple sclerosis by current examination. Carotid Doppler, bilateral luminal narrowing of internal carotid, less than 50%. No evidence of hemodynamically significant stenosis. LABORATORY DATA: WBC 7.1, hemoglobin and hematocrit 11.9/35.7, platelets 234. Chemistry: Sodium 142, potassium 3.2, chloride 105, bicarbonate 28, BUN 9, creatinine 1.03, magnesium 1.5. Thyroid function tests within normal limits. Cardiac enzymes negative times two. PHYSICAL EXAMINATION: GENERAL: Patient is alert and oriented times three. No acute distress. HEENT: Normocephalic, atraumatic. PULMONARY: Bilaterally clear to auscultation. CARDIAC: Regular rate and rhythm. Normal S1, S2. ABDOMEN: Soft, nontender, nondistended. Positive bowel sounds. EXTREMITIES: No edema in bilateral lower extremities. NEUROLOGIC: No focal deficits. Cranial nerves II through XII grossly intact. Able to move all four extremities. ASSESSMENT AND PLAN: This is a 66-year-old female patient with underlying medical history of type 2 diabetes, gastroesophageal reflux disease (GERD), hypertension, multiple sclerosis, osteoporosis, who presented status post presyncope and syncope. 1. Syncope, possibly secondary to complex partial seizure. Neurology consulted. EEG and MRI appreciated. Carotid Dopplers. Neuro checks. Seizures precautions. Fall precautions. Physical therapy (PT). Followup orthostatic vital signs. IV fluids for hydration. 2. Orthostatic hypotension. Possibly secondary to diuretics and dehydration. IV fluids for hydration provided. Orthostatic vital signs followed and currently negative. 3. Hypokalemia. Withholding diuretics. Supplement potassium and magnesium. 4. Acute kidney injury. IV fluids for hydration. Followup BUN and creatinine. Withholding diuretics. 5. Hypertension. Continue losartan, metoprolol. Norvasc has been added. The patient was hypertensive overnight. Continue to follow. Goal blood pressure over the next 24 hours, 180 to 150 systolic and 90 to 100 diastolic. We will adjust medication as needed. 6. Depression. Continue home medications. 7. Type 2 diabetes. Insulin as per protocol. Holding oral medications. Followup fingersticks. 8. Urinary tract infection (UTI). Continue antibiotics. Followup cultures. 9. Multiple sclerosis. Physical therapy (PT). Outpatient neurology followup. 10. Gastroesophageal reflux disease (GERD). Proton pump inhibitor. 11. Deep vein thrombosis (DVT) prophylaxis. Heparin subcutaneously. DISPOSITION: Pending EEG, physical therapy (PT), clinical improvement.
[2016-11-24 16:39] LABS: CALCIUM LEVEL 9.6 MG/DL (8.8-10.2); CREATININE FOR GFR 1.24 MG/DL (0.55-1.02); GLOMERULAR FILTRATION RATE 45.9 (>45); MAGNESIUM LEVEL 2.2 MG/DL (1.8-2.4); POTASSIUM SERUM 3.7 MEQ/L (3.5-5.1)
[2016-11-24] MEDS: AMITRIPTYLINE 50 MG TAB PO SCH (20:22)
[2016-11-25] MEDS ORDERED: SLF 3 ML SYR IV PRN (02:00)
[2016-11-25 05:00] VITALS: BP 138/74
[2016-11-25 05:48] LABS: MEAN CORPUSCULAR HEMOGLOBIN 30.1 pg (27.0-33.0); MEAN CORPUSCULAR HGB CONC 33.2 g/dl (32.0-36.5); MEAN CORPUSCULAR VOLUME 90.9 fl (80.0-96.0); RED CELL DISTRIBUTION WIDTH 14.3 % (11.5-14.5)
[2016-11-25 05:56] LABS: CALCIUM LEVEL 9.4 MG/DL (8.8-10.2); CREATININE FOR GFR 1.06 MG/DL (0.55-1.02); MAGNESIUM LEVEL 1.9 MG/DL (1.8-2.4); POTASSIUM SERUM 3.4 MEQ/L (3.5-5.1)
[2016-11-25] MEDS: SLF 3 ML SYR IV SCH ×2 (06:19→14:00)
[2016-11-25] MEDS ORDERED: POTASSIUM CHLORIDE 10 MEQ SR TABLET PO ONE (07:30)
[2016-11-25 08:00] VITALS: BP 171/98
[2016-11-25] MEDS: HumaLOG INSULIN (NovoLOG) PER UNIT SC SCH ×2 (08:04→12:14)
[2016-11-25] MEDS: DOCUSATE SODIUM 100 MG CAP PO SCH (08:09)
[2016-11-25] MEDS: PANTOPRAZOLE 40MG TAB (PROTONIX) PO SCH (08:10)
[2016-11-25] MEDS: EZETIMIBE 10 MG TAB (ZETIA) PO SCH (08:10)
[2016-11-25] MEDS: LOSARTAN 50 MG TAB PO SCH (08:10)
[2016-11-25] MEDS: HEPARIN SOD (PORCINE) 5000 UNITS/ML VIAL SC SCH (08:10)
[2016-11-25] MEDS: ASPIRIN 81 MG ENTERIC TAB PO SCH (08:10)
[2016-11-25 08:11] VITALS: BP 171/98
[2016-11-25] MEDS: amLODIPine 10 MG TAB PO SCH (08:11)
[2016-11-25] MEDS: MAGNESIUM OXIDE 400 MG TAB (MAG-OX) PO SCH (08:11)
[2016-11-25] MEDS: METOPROLOL SUCC (TopROL XL) 100MG *XL* TAB PO SCH (08:11)
[2016-11-25] MEDS: DULoxetine 30 MG CAP (CYMBALTA) PO SCH (08:12)
[2016-11-25] MEDS: BACLOFEN 10 MG TAB PO SCH (08:12)
[2016-11-25] MEDS ORDERED: LEVA250T PO (11:42)
[2016-11-25] MEDS ORDERED: MAG400TA PO (11:42)
[2016-11-25] MEDS ORDERED: ASPI81TAEC PO (11:42)
[2016-11-25] MEDS ORDERED: AMLO10TA2 PO (11:42)
[2016-11-25 12:00] VITALS: BP 132/68
--- NOTE | 2016-11-25 15:29 | EDDOCDS ---
Nurse's Notes [facility] Name: Checo Mcdowell Age: 66 yrs Sex: Female : 1950 Arrival Date: 11/23/2016 Time: 06:55 Bed 17 Private MD: Diagnosis: Syncope and collapse Presentation: 11/23 07:02 Presenting complaint: EMS states: Pt presents via EMS after pt got up this morning and dls the next thing she knew she woke up on the kitchen floor has no recall of events, Pt has has similar sx before. Pt denies any injuries family wants to get her checked out. Adult Sepsis Screening: Patient has new or worsening altered mentation (1 point). Systolic blood pressure is greater than 100. Patient has a qSOFA score of 1- Negative Sepsis Screen. Suicide/Homicide risk assessment- the patient denies having any suicidal and/or homicidal ideations and does not present with any other emotional, behavioral or mental health complaints. Status: Patient is not a branch service specialist or dependent. Transition of care: patient was not received from another setting of care. 07:02 Acuity: JAGRUTI Level 3 dls 07:02 Method Of Arrival: Ambulance dls Triage Assessment: 07:10 General: Appears in no apparent distress, well developed, well nourished, well groomed, dls Behavior is cooperative. Pain: Pain currently is 10 out of 10 on a pain scale. Respiratory: No deficits noted. GI: No deficits noted. : No deficits noted. Derm: No deficits noted. Musculoskeletal: No deficits noted. Injury Description: No known injury. Historical: - Allergies: Codeine Sulfate (Rash); DarvonHallucinations; DemerolAnxiety; MotrinDiarrhea; PENICILLINS (Rash); - Home Meds: 1. amitriptyline 50 mg Oral tab nightly 2. amlodipine 5 mg Oral tab 1 tab once daily 3. baclofen 20 mg Oral tab twice a day 4. duloxetine 60 mg Oral cpDR 1 cap once daily 5. losartan 100 mg oral tab 1 tab once daily 6. metformin 500 mg Oral Tb24 1 TAB with breakfast / 2 tabs with dinner 7. metoprolol succinate 100 mg Tb24 1 tab once daily 8. Nexium 40 mg Oral cpDR 1 cap 2 times per day 9. Zetia 10 mg Oral tab 1 tab once daily 10. Diuretic oral tab after meals - PMHx: Diabetes - NIDDM: controlled; GERD; Hypertension; Multiple Sclerosis; Osteoporosis; - PSHx: Appendectomy; Tubal ligation; jaw surgery; - Social history: Smoking status: Patient states former smoker of tobacco. No barriers to communication noted, The patient speaks fluent Kinyarwanda. - Family history: Not pertinent. - : The pt / caregiver states he / she is not on anticoagulants. Home medication list is obtained from the patient, Mingly import data. - Exposure Risk Screening:: None identified. Screenin:10 Screening information is obtained from the patient. Fall risk: At risk due to gait dls disturbance. Assistance ADL's: requires no assistance with activities of daily living. Abuse/DV Screen: The patient / caregiver reports he/she is:. Nutritional screening: No deficits noted. Advance Directives: Currently, there is no health care proxy. There is no active DNR order. There is no living will. There is no Power of Assistant At Surgery. Advance directive information has not previously been placed in an [facility] medical record. home support is adequate. Assessment: 08:09 General: Appears in no apparent distress, well developed, well nourished, well groomed, dls Behavior is cooperative. Pain: Pain currently is 10 out of 10 on a pain scale. 08:13 General: Orthostatic vs completed pt became dizzy with sitting and standing MD grullon notified.. 09:00 General: Appears in no apparent distress, comfortable, Behavior is appropriate for age, kc3 cooperative. Pain: Denies pain. Neurological: Level of Consciousness is awake, alert, obeys commands, Oriented to person, place, time. Respiratory: Respiratory effort is even, unlabored, Respiratory pattern is regular, symmetrical. 09:52 General: Admitting provider at bedside. . kc3 10:30 General: Appears in no apparent distress, comfortable, Behavior is appropriate for age, kc3 cooperative. Neurological: Level of Consciousness is awake, alert, obeys commands, Oriented to person, place, time. Cardiovascular: Rhythm is regular. Respiratory: Respiratory effort is even, unlabored, Respiratory pattern is regular, symmetrical. Derm: Skin is pink, warm & dry. Musculoskeletal: Circulation, motion, and sensation intact. 11:00 General: Appears in no apparent distress, comfortable, Behavior is appropriate for age, kc3 cooperative. General: Admitting nurse at bedside. . Neurological: Level of Consciousness is awake, alert, obeys commands, Oriented to person, place, time. Cardiovascular: Rhythm is regular. Respiratory: Respiratory effort is even, unlabored, Respiratory pattern is regular, symmetrical. Derm: Skin is pink, warm & dry. Musculoskeletal: Circulation, motion, and sensation intact. 11:57 General: Appears in no apparent distress, comfortable, Behavior is appropriate for age, kc3 cooperative, Pt given water per request. . Neurological: Level of Consciousness is awake, alert, obeys commands, Oriented to person, place, time. Cardiovascular: Rhythm is regular. Respiratory: Respiratory effort is even, unlabored, Respiratory pattern is regular, symmetrical. Derm: Skin is pink, warm & dry. Musculoskeletal: Circulation, motion, and sensation intact. 12:37 General: Appears in no apparent distress, comfortable, Behavior is appropriate for age, kc3 cooperative, Pt ambulated to restroom and back to bed with no distress noted. Pt transported to MRI by house transport. . Neurological: Level of Consciousness is awake, alert, obeys commands, Oriented to person, place, time. Cardiovascular: Rhythm is regular. Respiratory: Respiratory effort is even, unlabored, Respiratory pattern is regular, symmetrical. Derm: Skin is pink, warm & dry. Musculoskeletal: Range of motion intact in all extremities. 13:37 General: Appears in no apparent distress, comfortable, Behavior is appropriate for age, kc3 cooperative, Pt returned from MRI. Pt given water per request. . Neurological: Level of Consciousness is awake, alert, obeys commands, Oriented to person, place, time. Cardiovascular: Rhythm is regular. Respiratory: Respiratory effort is even, unlabored, Respiratory pattern is regular, symmetrical. Derm: Skin is pink, warm & dry. Musculoskeletal: Circulation, motion, and sensation intact. 14:03 General: Appears in no apparent distress, comfortable, Behavior is appropriate for age, kc3 cooperative. Neurological: Level of Consciousness is awake, alert, obeys commands, Oriented to person, place, time. Cardiovascular: Rhythm is regular. Respiratory: Respiratory effort is even, unlabored, Respiratory pattern is regular, symmetrical. Derm: Skin is pink, warm & dry. Musculoskeletal: Circulation, motion, and sensation intact. Vital Signs: 07:07 BP 120 / 67; Pulse 85; Resp 18; Temp 97.3(O); Pulse Ox 96% on R/A; Weight 68.04 kg (R); dem1 Height 5 ft. 2 in. (157.48 cm) (R); 08:11 BP 118 / 79 Supine; Pulse 78; Resp 20; dls 08:11 BP 112 / 76 Sitting; Pulse 79; Resp 20; dls 08:12 BP 103 / 59 Standing; Pulse 90; Resp 20; dls 09:01 Pulse 80 MON; Pulse Ox 95% ; kc3 09:02 BP 129 / 64 (auto/); kc3 10:21 Pulse 76 MON; Pulse Ox 96% ; kc3 10:22 BP 146 / 80 (auto/); kc3 12:23 Pulse 78 MON; Pulse Ox 95% ; kc3 12:24 BP 167 / 93 (auto/); kc3 12:29 Pulse 82 MON; Pulse Ox 95% ; kc3 13:33 BP 194 / 91 (auto/); kc3 13:35 BP 173 / 99 (auto/); Pulse 81; Resp 18; Temp 97.7; Pulse Ox 97% on R/A; kc3 13:56 BP 172 / 98 (man/); kc3 14:03 BP 184 / 91 (auto/); kc3 14:03 Pulse 84 MON; Pulse Ox 96% ; kc3 14:09 BP 184 / 92 LA Sitting (man/reg); nb2 14:10 Pulse 84 MON; Resp 18; Temp 98.3(O); Pulse Ox 96% on R/A; kc3 07:07 Body Mass Index 27.44 (68.04 kg, 157.48 cm) [facility] Vitals: 07:07 Log In Time N/A - ambulance arrival. [facility] ED Course: 06:56 Patient visited by Paige Jones, Postdoctoral Research Fellow. deg 06:56 Patient moved to Waiting deg 06:56 Patient moved to 17 deg 07:06 Triage Initiated dls 07:08 Patient visited by Dipika Salinas. dem1 07:10 Patient visited by Dipika Salinas. [facility]1 07:10 Pt greeted and oriented to ED. Patient advised of names of staff involved in care, [facility] location of call [place], wait times and NPO status. Patient has correct armband on for positive identification. Placed in gown. Bed in low position. Call light in reach. Side rails up X2. quality assurance monitor on. Pulse ox on. NIBP on. 07:10 Inserted saline lock: 20 gauge in right antecubital area and blood collected. The hs1 patient tolerated the procedure well. 07:14 Breanne Ricks MD is Attending Physician. fg 07:15 Patient visited by Breanne Ricks MD. fg 07:38 Patient visited by Sintia Parker PCA. ct3 07:38 Basic Metabolic Profile Sent. dls 07:38 EKG done. (by ED staff). Reviewed by Breanne Ricks MD. ct3 07:38 CBC with Diff Sent. dls 07:38 Cardiac Injury Profile Sent. dls 07:39 Thyroid Stimulating Hormone Sent. dls 07:39 Troponin Sent. dls 08:10 The patient / caregiver is instructed regarding the plan of care and ED course. dls 08:10 No procedures done that require assistance. dls 08:30 [facility] Payment Agreement was scanned into Viptable and attached to record. lg 08:44 Chest, 1 View Returned. EDMS 08:44 CT Head Without Contrast Returned. EDMS 08:45 Patient visited by Maryann Vann. nb2 08:57 Arlene Medina,RN is Primary Nurse. kc3 09:31 Patient visited by Arlene Medina,ROSAURA. kc3 09:31 Lidia Reynolds is Hospitalizing Provider. fg 09:52 Patient moved to Admit Hold ml6 10:20 EKG-ADULT Returned. EDMS 12:38 Patient moved to MRI kc3 13:38 Patient visited by Arlene Medina,RN. kc3 13:38 Patient moved to 17 kc3 14:09 Patient visited by Maryann Vann. nb2 14:19 MRI Brain W/O FOLL BY WITH Returned. EDMS 01/03 03:44 T-Sheet-- Draft Copy was scanned into Viptable and attached to record. hs2 10:54 ECG/EKG was scanned into Viptable and attached to record. gb 11:59 PCR was scanned into Viptable and attached to record. gb Administered Medications: 11/23 08:26 Drug: NS 0.9% 500 ml [sodium chloride 0.9 % intravenous solution] Route: IV; Rate: dls bolus; Site: right antecubital; 12:00 Follow up: IV Status: Completed infusion kc3 Point of Care Testing: Blood Glucose: 08:09 Blood Glucose: 326 mg/dL; dls Ranges: Order Results: Lab Order: Basic Metabolic Profile; SPEC'M 11/23/16 07:16 Test: GLUCOSE, FASTING; Value: 288; Range: 80-110; Abnormal: Above high normal; Units: MG/DL; Status: F Test: BLOOD UREA NITROGEN; Value: 14; Range: 7-18; Units: MG/DL; Status: F Test: CREATININE FOR GFR; Value: 1.39; Range: 0.55-1.02; Abnormal: Above high normal; Units: MG/DL; Status: F Test: GLOMERULAR FILTRATION RATE; Value: 40.3; Range: >45; Abnormal: Below low normal; Status: F Test: SODIUM LEVEL; Value: 139; Range: 136-145; Units: MEQ/L; Status: F Test: POTASSIUM SERUM; Value: 3.2; Range: 3.5-5.1; Abnormal: Below low normal; Units: MEQ/L; Status: F Test: CHLORIDE LEVEL; Value: 98; Range: 98-107; Units: MEQ/L; Status: F Test: CARBON DIOXIDE LEVEL; Value: 30; Range: 21-32; Units: MEQ/L; Status: F Test: ANION GAP; Value: 11; Range: 8-16; Units: MEQ/L; Status: F Test: CALCIUM LEVEL; Value: 9.6; Range: 8.8-10.2; Units: MG/DL; Status: F Test Note: ; Units are mL/min/1.73 m2 Chronic Kidney Disease Staging per NKF: Stage I & II GFR >=60 Normal to Mildly Decreased Stage III GFR 30-59 Moderately Decreased Stage IV GFR 15-29 Severely Decreased Stage V GFR <15 Very Little GFR Left ESRD GFR <15 on SCRAP PREPARER Lab Order: CBC with Diff; SPEC'M 11/23/16 07:16 Test: WHITE BLOOD COUNT; Value: 8.9; Range: 4.0-10.0; Units: K/mm3; Status: F Test: RED BLOOD COUNT; Value: 4.20; Range: 4.00-5.40; Units: M/mm3; Status: F Test: HEMOGLOBIN; Value: 12.7; Range: 12.0-16.0; Units: g/dl; Status: F Test: HEMATOCRIT; Value: 37.7; Range: 36.0-47.0; Units: %; Status: F Test: MEAN CORPUSCULAR VOLUME; Value: 89.9; Range: 80.0-96.0; Units: fl; Status: F Test: MEAN CORPUSCULAR HEMOGLOBIN; Value: 30.2; Range: 27.0-33.0; Units: pg; Status: F Test: MEAN CORPUSCULAR HGB CONC; Value: 33.6; Range: 32.0-36.5; Units: g/dl; Status: F Test: RED CELL DISTRIBUTION WIDTH; Value: 13.3; Range: 11.5-14.5; Units: %; Status: F Test: PLATELET COUNT, AUTOMATED; Value: 244; Range: 150-450; Units: k/mm3; Status: F Test: NEUTROPHILS %; Value: 71.2; Range: 36.0-66.0; Abnormal: Above high normal; Units: %; Status: F Test: LYMPH %; Value: 19.9; Range: 24.0-44.0; Abnormal: Below low normal; Units: %; Status: F Test: MONO %; Value: 3.9; Range: 0.0-5.0; Units: %; Status: F Test: EOS %; Value: 2.5; Range: 0.0-3.0; Units: %; Status: F Test: BASO %; Value: 0.8; Range: 0.0-1.0; Units: %; Status: F Test: LARGE UNSTAINED CELL %; Value: 1.7; Range: 0.0-4.0; Units: %; Status: F Test: NEUTROPHILS #; Value: 6.3; Range: 1.8-7.7; Units: K/mm3; Status: F Test: LYMPH #; Value: 1.8; Range: 1.5-4.5; Units: K/mm3; Status: F Test: MONO #; Value: 0.4; Range: 0.0-0.8; Units: K/mm3; Status: F Test: EOS #; Value: 0.2; Range: 0.0-0.50; Units: K/mm3; Status: F Test: BASO #; Value: 0.1; Range: 0.0-0.2; Units: K/mm3; Status: F Test: LARGE UNSTAINED CELL #; Value: 0.2; Range: 0.0-0.4; Units: K/mm3; Status: F Lab Order: Cardiac Injury Profile; [facility] 11/23/16 07:16 Test: CPK CREATINE PHOSPHOKINASE; Value: 67; Range: 26-192; Units: U/L; Status: F Test: CK-MB VALUE MASS; Value: 1.0; Range: 0.0-3.6; Units: NG/ML; Status: F Test: MB/CK RELATIVE INDEX; Value: 1.49; Range: < OR =4; Status: F Test Note: ; DIAGNOSIS CRITERIA MMB ng/ml Relative Index (RI) NON-AMI < or = 5 N/A ESPARZA ZONE > 5 < or = 4 AMI > 5 > 4 Lab Order: Thyroid Stimulating Hormone; [facility] 11/23/16 07:16 Test: THYROID STIMULATING HORMONE; Value: 5.180; Range: 0.358-3.740; Abnormal: Above high normal; Units: uIU/ML; Status: F Lab Order: Troponin; [facility] 11/23/16 07:16 Test: TROPONIN I; Value: < 0.02; Range: < 0.10; Units: NG/ML; Status: F Test Note: ; Troponin I Reference Interval for RVX LOCI: 99th Percentile= 0.00-0.045 ng/ml Risk Stratification: <= 0.10 ng/ml Decreased Risk for Adverse Clinical Events. 0.10-1.50 ng/ml Increased Risk for Adverse Clinical Events. Evaluation of additional criterion and/or repeat testing in 2-6 hours is suggested to rule out myocardial damage. >= 1.50 ng/ml Indicative of Myocardial Injury. Lab Order: Urinalysis; [facility] 11/23/16 08:19 Test: APPEARANCE, URINE; Value: CLOUDY; Range: CLEAR; Abnormal: Above high normal; Status: F Test: COLOR, URINE; Value: YELLOW; Range: YELLOW; Status: F Test: PH,URINE; Value: 6.0; Range: 5.0-9.0; Units: UNITS; Status: F Test: SPECIFIC GRAVITY URINE AUTO; Value: 1.013; Range: 1.002-1.035; Status: F Test: PROTEIN, URINE AUTO; Value: NEGATIVE; Range: NEGATIVE; Units: mg/dL; Status: F Test: GLUCOSE, URINE (UA) AUTO; Value: 2+; Range: NEGATIVE; Abnormal: Above high normal; Units: mg/dL; Status: F Test: KETONE, URINE AUTO; Value: NEGATIVE; Range: NEGATIVE; Units: mg/dL; Status: F Test: UROBILINOGEN, URINE AUTO; Value: 0.2; Range: 0.0-2.0; Units: mg/dL; Status: F Test: BILIRUBIN, URINE AUTO; Value: NEGATIVE; Range: NEGATIVE; Status: F Test: NITRITE, URINE AUTO; Value: NEGATIVE; Range: NEGATIVE; Status: F Test: LEUKOCYTE ESTERASE, URINE AUTO; Value: 3+; Range: NEGATIVE; Abnormal: Above high normal; Status: F Test: BLOOD, URINE BLOOD; Value: 1+; Range: NEGATIVE; Abnormal: Above high normal; Status: F Test: WBC, URINE AUTO; Value: 174; Range: 0-3; Abnormal: Above high normal; Units: /HPF; Status: F Test: RBC, URINE AUTO; Value: 13; Range: 0-3; Abnormal: Above high normal; Units: /HPF; Status: F Test: BACTERIA, URINE AUTO; Value: 2+; Range: NEGATIVE; Abnormal: Above high normal; Status: F Test: SQUAMOUS EPITHELIAL CELL UR AU; Value: 6; Range: 0-6; Units: /HPF; Status: F Test: HYALINE CAST, URINE AUTO; Value: 0; Range: 0-1; Units: /LPF; Status: F Lab Order: Fingerstick Blood Sugar; SPEC'M 11/23/16 08:01 Test: BEDSIDE GLUCOSE; Value: 326; Range: 80-115; Abnormal: Above high normal; Units: MG/DL; Status: F Radiology Order: CT Head Without Contrast Test: CT Head Without Contrast REASON FOR EXAMINATION: Syncope; Clinical: Syncope .; ; Comparison: 12/06/2013.; ; Findings:; The ventricles, sulci, and cisterns are normal in position and appearance.; Esparza-white differentiation is maintained. No acute intracranial hemorrhage,; mass/mass effect, pathology or trauma/injury. No evidence for acute infarction.; No extra-axial fluid collection. Calvarium is intact. Paranasal sinuses and; mastoid air cells are clear.; ; Impression:; Normal noncontrast head CT.; No evidence for acute intracranial pathology or trauma/injury.; ; ; Signed by; Harley Merrill MD 11/23/2016 08:34 A; Radiology Order: Chest, 1 View Test: Chest, 1 View REASON FOR EXAMINATION: Chest Pain; Clinical: Chest pain.; ; Comparison: 10/01/2015.; ; Findings:; Visualized mediastinum and cardiac silhouette are within normal limits and; stable. Linear acute/chronic fibroatelectatic changes at the right base require; correlation. The lung sepulveda are otherwise clear and without further; consolidation, effusion, or pneumothorax. 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 Given history of multiple sclerosis.; ; Technique: Standard axial, sagittal, and coronal T1, T2, and postcontrast; sequencing of the brain.; ; Findings:; Mild age-related appearing periventricular leukomalacia and small T2 hyperintense; foci are identified consistent with microvascular ischemic changes. No enhancing; lesions are identified and there is no compelling evidence to support multiple; sclerosis by current examination. There is no evidence for acute infarction. No; obvious mass/mass effect, hemorrhage, or extra-axial collection. The ventricles; are symmetric and normal. The sulci are unremarkable and normal for age.; ; Impression:; Mild age-related microvascular ischemic changes and periventricular; leukomalacia.; No abnormal enhancing lesions.; No obvious compelling evidence to suggest multiple sclerosis by current; examination.; ; ; Signed by; Harley Merrill MD 11/23/2016 01:58 P; Outcome: 09:31 Decision to Hospitalize by Provider. fg 11:59 CT Study completed. kc3 14:03 Discharge Assessment: Patient awake, alert and oriented x 3. No cognitive and/or kc3 functional deficits noted. Patient verbalized understanding of disposition instructions. patient administered narcotics - no. The following High Risk Discharge criteria are identified: None. Admitted to PCU accompanied by nurse, via stretcher, on monitor, with chart. Condition: stable. Admission hand-off: Report Faxed Fax receipt verified by ROSAURA De La Paz . Property :Personal belongings accompany Pt. 14:27 Patient left the ED. kc3 Signatures: Dispatcher [employer] EDMS Paige Jones, Postdoctoral Research Fellow Unit deg Katarina Delacruz, RN RN dls Marva Martinez, Reg Reg gb Lisandra Resendiz, Reg Reg lg Dhiraj Gee RN RN ml6 Deann Servin RN RN hs1 Sintia Parker, CREW MANAGER CREW MANAGER ct3 Dipika Salinas dem1 Breanne Ricks MD MD fg Crane, KelsiRN RN kc3 Ivette Chapa, Reg Reg hs2 Maryann Vann nb2 Corrections: (The following items were deleted from the chart) 07:10 07:07 Pulse 85bpm; Resp 18bpm; Pulse Ox 96% RA; Temp 97.3F Oral; 68.04 kg Reported; dem1 Height 5 ft. 2 in. Reported; BMI: 27.4; dem1 Chart Complete MTDD
--- NOTE | 2016-11-25 15:29 | EDDOCDS ---
Physician Documentation [facility] Name: Jossue Acosta Age: 66 yrs Sex: Female : 1950 Arrival Date: 11/23/2016 Time: 06:55 Bed 17 Private MD: Disposition: 11/23/16 09:31 Hospitalization ordered by Lidia Reynolds for Inpatient Admission. Preliminary diagnosis is Syncope and collapse. - Bed requested for PCU. - Status is Inpatient Admission. kc3 - Condition is Stable. - Problem is new. - Symptoms have improved. Historical: - Allergies: Codeine Sulfate (Rash); DarvonHallucinations; DemerolAnxiety; MotrinDiarrhea; PENICILLINS (Rash); - Home Meds: 1. amitriptyline 50 mg Oral tab nightly 2. amlodipine 5 mg Oral tab 1 tab once daily 3. baclofen 20 mg Oral tab twice a day 4. duloxetine 60 mg Oral cpDR 1 cap once daily 5. losartan 100 mg oral tab 1 tab once daily 6. metformin 500 mg Oral Tb24 1 TAB with breakfast / 2 tabs with dinner 7. metoprolol succinate 100 mg Tb24 1 tab once daily 8. Nexium 40 mg Oral cpDR 1 cap 2 times per day 9. Zetia 10 mg Oral tab 1 tab once daily 10. Diuretic oral tab after meals - PMHx: Diabetes - NIDDM: controlled; GERD; Hypertension; Multiple Sclerosis; Osteoporosis; - PSHx: Appendectomy; Tubal ligation; jaw surgery; - Social history: Smoking status: Patient states former smoker of tobacco. No barriers to communication noted, The patient speaks fluent Vietnamese. - Family history: Not pertinent. - : The pt / caregiver states he / she is not on anticoagulants. Home medication list is obtained from the patient, [employer] import data. - Exposure Risk Screening:: None identified. Vital Signs: 11/23 07:07 BP 120 / 67; Pulse 85; Resp 18; Temp 97.3(O); Pulse Ox 96% on R/A; Weight 68.04 kg / dem1 150 lbs (R); Height 5 ft. 2 in. (157.48 cm) (R); 08:11 BP 118 / 79 Supine; Pulse 78; Resp 20; dls 08:11 BP 112 / 76 Sitting; Pulse 79; Resp 20; dls 08:12 BP 103 / 59 Standing; Pulse 90; Resp 20; dls 09:01 Pulse 80 MON; Pulse Ox 95% ; kc3 09:02 BP 129 / 64 (auto/); kc3 10:21 Pulse 76 MON; Pulse Ox 96% ; kc3 10:22 BP 146 / 80 (auto/); kc3 12:23 Pulse 78 MON; Pulse Ox 95% ; kc3 12:24 BP 167 / 93 (auto/); kc3 12:29 Pulse 82 MON; Pulse Ox 95% ; kc3 13:33 BP 194 / 91 (auto/); kc3 13:35 BP 173 / 99 (auto/); Pulse 81; Resp 18; Temp 97.7; Pulse Ox 97% on R/A; kc3 13:56 BP 172 / 98 (man/); kc3 14:03 BP 184 / 91 (auto/); kc3 14:03 Pulse 84 MON; Pulse Ox 96% ; kc3 14:09 BP 184 / 92 LA Sitting (man/reg); nb2 14:10 Pulse 84 MON; Resp 18; Temp 98.3(O); Pulse Ox 96% on R/A; kc3 07:07 Body Mass Index 27.44 (68.04 kg, 157.48 cm) dem1 MDM: 07:29 Program Associate/Pulse Ox/q 15 min VS ordered. fg 07:29 Accucheck ordered. fg 07:29 IV Saline Lock ordered. fg 07:29 Orthostatic VS ordered. fg 07:29 Rhythm Strip to chart ordered. fg 07:30 Basic Metabolic Profile Ordered. EDMS 07:31 CBC with Diff Ordered. EDMS 07:31 Cardiac Injury Profile Ordered. EDMS 07:31 Thyroid Stimulating Hormone Ordered. EDMS 07:31 Troponin Ordered. EDMS 07:31 Urinalysis Ordered. EDMS 07:31 Urine Culture Ordered. EDMS 07:31 Chest, 1 View Ordered. EDMS 07:31 CT Head Without Contrast Ordered. EDMS 07:31 ECG WITH READING ER PHYS+CARDIAG ordered. EDMS 07:31 BED REQUEST+ADM ordered. EDMS 08:11 Financial registration complete. lg 08:15 Fingerstick Blood Sugar Ordered. EDMS 08:16 NS 0.9% 500 ml IV at bolus once ordered. fg 08:30 [facility] [place] Payment Agreement was scanned into [employer] and attached to record. lg 11:08 CARDIAC MARKER PANEL Ordered. EDMS 11:08 BASIC METABOLIC PROFILE Ordered. EDMS 11:08 MAGNESIUM LEVEL Ordered. EDMS 11:11 MRI Brain W/O FOLL BY WITH Ordered. EDMS 11:15 CONSISTENT CARBOHYDRATES ordered. EDMS 11:15 PHYSICAL THERAPY EVAL & TREAT ordered. EDMS 11:16 Admission / Observation Status ordered. EDMS 14:23 THYROID PROFILE Ordered. EDMS 11/24 03:44 T-Sheet-- Draft Copy was scanned into [employer] and attached to record. hs2 10:54 ECG/EKG was scanned into [employer] and attached to record. gb 11:59 PCR was scanned into [employer] and attached to record. gb Point of Care Testing: Blood Glucose: 11/23 08:09 Blood Glucose: 326 mg/dL; dls Ranges: Administered Medications: 08:26 Drug: NS 0.9% 500 ml [sodium chloride 0.9 % intravenous solution] Route: IV; Rate: dls bolus; Site: right antecubital; 12:00 Follow up: IV Status: Completed infusion kc3 Signatures: Dispatcher [employer] Katarina Barlow, RN RN dls Marva Martinez, Reg Reg gb Lisandra Resendiz, Reg Reg lg Breanne Ricks MD MD fg Arlene Medina RN RN kc3 Ivette Chapa, Reg Reg hs2 Elham Talley, ROSAURA RN lmg The chart was reviewed and I authenticate all verbal orders and agree with the evaluation and treatment provided.Corrections: (The following items were deleted from the chart) 13:38 11:08 THYROID PROFILE ordered. EDMS EDMS 14:14 13:39 THYROID PROFILE ordered. EDVA EDMS Attachments: 08:30 [facility] Payment Agreement lg 11/24 03:44 T-Sheet-- Draft Copy hs2 10:54 ECG/EKG gb Chart Complete MTDD
--- NOTE | 2016-11-25 15:29 | EDDOCDS ---
Physician Documentation [facility] Name: Jossue Acosta Age: 66 yrs Sex: Female : 1950 Arrival Date: 11/23/2016 Time: 06:55 Bed 17 Private MD: Disposition: 11/23/16 09:31 Hospitalization ordered by Lidia Reynolds for Inpatient Admission. Preliminary diagnosis is Syncope and collapse. - Bed requested for PCU. - Status is Inpatient Admission. kc3 - Condition is Stable. - Problem is new. - Symptoms have improved. Historical: - Allergies: Codeine Sulfate (Rash); DarvonHallucinations; DemerolAnxiety; MotrinDiarrhea; PENICILLINS (Rash); - Home Meds: 1. amitriptyline 50 mg Oral tab nightly 2. amlodipine 5 mg Oral tab 1 tab once daily 3. baclofen 20 mg Oral tab twice a day 4. duloxetine 60 mg Oral cpDR 1 cap once daily 5. losartan 100 mg oral tab 1 tab once daily 6. metformin 500 mg Oral Tb24 1 TAB with breakfast / 2 tabs with dinner 7. metoprolol succinate 100 mg Tb24 1 tab once daily 8. Nexium 40 mg Oral cpDR 1 cap 2 times per day 9. Zetia 10 mg Oral tab 1 tab once daily 10. Diuretic oral tab after meals - PMHx: Diabetes - NIDDM: controlled; GERD; Hypertension; Multiple Sclerosis; Osteoporosis; - PSHx: Appendectomy; Tubal ligation; jaw surgery; - Social history: Smoking status: Patient states former smoker of tobacco. No barriers to communication noted, The patient speaks fluent Occitan. - Family history: Not pertinent. - : The pt / caregiver states he / she is not on anticoagulants. Home medication list is obtained from the patient, MC2 import data. - Exposure Risk Screening:: None identified. Vital Signs: 11/23 07:07 BP 120 / 67; Pulse 85; Resp 18; Temp 97.3(O); Pulse Ox 96% on R/A; Weight 68.04 kg / dem1 150 lbs (R); Height 5 ft. 2 in. (157.48 cm) (R); 08:11 BP 118 / 79 Supine; Pulse 78; Resp 20; dls 08:11 BP 112 / 76 Sitting; Pulse 79; Resp 20; dls 08:12 BP 103 / 59 Standing; Pulse 90; Resp 20; dls 09:01 Pulse 80 MON; Pulse Ox 95% ; kc3 09:02 BP 129 / 64 (auto/); kc3 10:21 Pulse 76 MON; Pulse Ox 96% ; kc3 10:22 BP 146 / 80 (auto/); kc3 12:23 Pulse 78 MON; Pulse Ox 95% ; kc3 12:24 BP 167 / 93 (auto/); kc3 12:29 Pulse 82 MON; Pulse Ox 95% ; kc3 13:33 BP 194 / 91 (auto/); kc3 13:35 BP 173 / 99 (auto/); Pulse 81; Resp 18; Temp 97.7; Pulse Ox 97% on R/A; kc3 13:56 BP 172 / 98 (man/); kc3 14:03 BP 184 / 91 (auto/); kc3 14:03 Pulse 84 MON; Pulse Ox 96% ; kc3 14:09 BP 184 / 92 LA Sitting (man/reg); nb2 14:10 Pulse 84 MON; Resp 18; Temp 98.3(O); Pulse Ox 96% on R/A; kc3 07:07 Body Mass Index 27.44 (68.04 kg, 157.48 cm) dem1 MDM: 07:29 Senior Living Advisor/Pulse Ox/q 15 min VS ordered. fg 07:29 Accucheck ordered. fg 07:29 IV Saline Lock ordered. fg 07:29 Orthostatic VS ordered. fg 07:29 Rhythm Strip to chart ordered. fg 07:30 Basic Metabolic Profile Ordered. EDMS 07:31 CBC with Diff Ordered. EDMS 07:31 Cardiac Injury Profile Ordered. EDMS 07:31 Thyroid Stimulating Hormone Ordered. EDMS 07:31 Troponin Ordered. EDMS 07:31 Urinalysis Ordered. EDMS 07:31 Urine Culture Ordered. EDMS 07:31 Chest, 1 View Ordered. EDMS 07:31 CT Head Without Contrast Ordered. EDMS 07:31 ECG WITH READING ER PHYS+CARDIAG ordered. EDMS 07:31 BED REQUEST+ADM ordered. EDMS 08:11 Financial registration complete. lg 08:15 Fingerstick Blood Sugar Ordered. EDMS 08:16 NS 0.9% 500 ml IV at bolus once ordered. fg 08:30 [facility] Agreement was scanned into [employer] and attached to record. lg 11:08 CARDIAC MARKER PANEL Ordered. EDMS 11:08 BASIC METABOLIC PROFILE Ordered. EDMS 11:08 MAGNESIUM LEVEL Ordered. EDMS 11:11 MRI Brain W/O FOLL BY WITH Ordered. EDMS 11:15 CONSISTENT CARBOHYDRATES ordered. EDMS 11:15 PHYSICAL THERAPY EVAL & TREAT ordered. EDMS 11:16 Admission / Observation Status ordered. EDMS 14:23 THYROID PROFILE Ordered. EDMS 11/24 03:44 T-Sheet-- Draft Copy was scanned into [employer] and attached to record. hs2 10:54 ECG/EKG was scanned into [employer]ST and attached to record. gb 11:59 PCR was scanned into [employer] and attached to record. gb Point of Care Testing: Blood Glucose: 11/23 08:09 Blood Glucose: 326 mg/dL; dls Ranges: Administered Medications: 08:26 Drug: NS 0.9% 500 ml [sodium chloride 0.9 % intravenous solution] Route: IV; Rate: dls bolus; Site: right antecubital; 12:00 Follow up: IV Status: Completed infusion kc3 Signatures: Dispatcher [employer] Katarina Barlow, RN RN dls Marva Martinez, Reg Reg gb Lisandra Resendiz, Reg Reg lg Breanne Ricks MD MD fg Arlene Medina RN RN kc3 Ivette Chapa, Reg Reg hs2 Elham Talley, ROSAURA RN lmg The chart was reviewed and I authenticate all verbal orders and agree with the evaluation and treatment provided.Corrections: (The following items were deleted from the chart) 13:38 11:08 THYROID PROFILE ordered. EDMS EDMS 14:14 13:39 THYROID PROFILE ordered. EDNY EDMS Attachments: 08:30 [facility] Payment Agreement lg 11/24 03:44 T-Sheet-- Draft Copy hs2 10:54 ECG/EKG gb Chart Complete MTDD
--- NOTE | 2016-11-25 17:15 | DSES ---
DATE OF ADMISSION: 11/23/2016 DATE OF DISCHARGE: 11/25/2016 PRIMARY CARE PROVIDER: Dr. Vernon NEUROLOGIST: Dr. Klein NEUROLOGIST CONSULTED: Dr. Dueñas FINAL DIAGNOSES: 1. Syncope and presyncope. 2. Possible complex partial seizure. 3. Orthostatic hypotension. 4. Hypokalemia. 5. Acute kidney injury. 6. History of hypertension. 7. Depression. 8. Type 2 diabetes. 9. Urinary tract infection (UTI). 10. Multiple sclerosis. 11. Gastroesophageal reflux disease (GERD). HISTORY OF PRESENT ILLNESS: This is a 66-year-old female patient with underlying medical history of type 2 diabetes, gastroesophageal reflux disease (GERD), hypertension, multiple sclerosis, osteoporosis, who presented with acute episode of syncope. As per patient, first episode was questionable syncope versus presyncopal episode. The patient's first episode occurred about one month ago when the patient was walking through a store well known to the patient with the . Subsequently, the patient was standing a bit wobbly for 5 to 10 minutes. As per patient, she felt like she was blacked out and confused and did not know where she was and was does not even remember the event. It took the patient about 20 to 30 minutes to return to baseline. As per , happened about one month ago with no fall. Did not hit the floor, but was standing confused and talking gibberish. No urinary or bowel incontinence. Subsequently, on the morning of admission, the patient was getting out of bed, but subsequently was found on the floor in the kitchen by the . The patient was on the floor for approximately 30 minutes. It took the patient another 30 minutes to return to baseline. The patient does not know the event. No tonic clonic movement. Baseline walking with a cane. Denies any headache, lightheadedness. Denies any significant trauma. No history of seizure. No vision change. As per , the patient was warm and well perfused at the time. No tongue biting. No urinary or fecal incontinence. In the emergency room, the patient did not show any focal weakness. No vision change. Orthostatic hypotensive. Given intravenous fluids. As per the patient, recently a diuretic has been added to the patient's medical regimen. Denies any chest pain, pressure or discomfort. Denies any fevers or chills. HOSPITAL COURSE: The patient was admitted to the hospital and found to have mild urinary tract infection (UTI), given antibiotic. Neurology consulted. Status post EEG and MRI. Orthostatic vital signs. Intravenous hydration was given. Diuretic has been discontinued. Blood pressure medication adjusted. Deep vein thrombosis (DVT) prophylaxis provided. Carotid Doppler done and was negative. Orthostatic hypotension resolved. The patient suffered no further episodes. Neurology consultation appreciated. Subsequently, telemetry evaluation appreciated. The patient is currently comfortable in no acute distress. Tolerating oral. Reported back to baseline. Passed physical therapy (PT) and ready for discharge for further care as an outpatient. Home care referral made. VITAL SIGNS: Temperature 96.8, pulse 72, respirations 20, blood pressure 132/68, pulse oximetry 95% on room air. LABORATORY DATA: WBC 6, hemoglobin and hematocrit 12.3/37, platelets 217. Chemistry: Sodium 141, potassium 3.4, chloride 105, bicarbonate 29, BUN 11, creatinine 1.06, magnesium 1.9. DISCHARGE MEDICATIONS: - Norvasc 10 mg by mouth daily - aspirin 81 mg by mouth daily - Levaquin 200 mg by mouth daily for 4 more days - magnesium oxide 400 mg by mouth twice a day - amitriptyline 50 mg by mouth at night - Baclofen 20 mg by mouth twice a day - Cymbalta 60 mg by mouth daily - Nexium 40 mg by mouth daily - Zetia 10 mg by mouth daily - losartan 100 mg by mouth daily - metformin 500 mg by mouth daily - metformin 1000 mg by mouth at night - metoprolol succinate 100 mg by mouth daily DISCHARGE INSTRUCTIONS: The patient is instructed to followup with primary care provider in 7 days and neurologist in 2 weeks. Return to the hospital if symptoms worsen.
--- NOTE | 2016-11-27 07:15 | EEG ---
DATE OF SERVICE: 11/25/2016 REFERRING PHYSICIAN: Dr. Lidia Reynolds DIAGNOSIS: Seizure. EEG#: [id number] HISTORY: The patient is a 66-year-old woman who was admitted at [facility] due to episode of passing out. The patient has a history of multiple sclerosis in the past. She is currently on levofloxacin, Cymbalta, baclofen, Zetia, Protonix, metoprolol, losartan, amlodipine, aspirin. TECHNICAL DESCRIPTION: This digital EEG was recorded by 21 scalp ear and two EKG electrodes and was reviewed in bipolar and referential montages following reformatting in 10 to 20 international electrode placement system. INTERPRETATION: The patient was noted to be in awake and drowsy states during this EEG. Resting awake background consisted of well-formed posterior dominant rhythm with anterior/posterior gradient comprising of 9 Hz alpha activity measuring 15 - 40 microvolts in amplitude which was symmetric and reactive to eye opening. Attenuation of posterior dominant rhythm was seen during transition into drowsiness. Stage I and II sleep were reviewed and were symmetric bilaterally. Hyperventilation and photic stimulation remained unremarkable. EKG revealed normal sinus rhythm. No focal, lateralizing or epileptiform abnormalities were seen. No clinical or electrographic seizures were recorded. CONCLUSION: This EEG in awake, drowsy states, stage I and II sleep is within normal limits.
== END 2016-11-25 14:45 | disposition home health service (06) | DRG 683 ==
LOC: M ED 06:55 → M ED INP 11:10 → M PCU 14:25
PROVIDERS: ADMIT Hospitalist; ATTEND Hospitalist
DX: N17.9 Acute kidney failure, unspecified (principal); N39.0 Urinary tract infection, site not specified; G40.209 Localization-related (focal) (partial) symptomatic epilepsy and epileptic syndromes with complex partial seizures, not intractable, without status epilepticus; R55 Syncope and collapse; K21.9 Gastro-esophageal reflux disease without esophagitis; E87.6 Hypokalemia; F32.9 Major depressive disorder, single episode, unspecified; I10 Essential (primary) hypertension; G35 Multiple sclerosis; I95.1 Orthostatic hypotension; E11.9 Type 2 diabetes mellitus without complications; M81.0 Age-related osteoporosis without current pathological fracture; Z79.82 Long term (current) use of aspirin; Z79.899 Other long term (current) drug therapy; Z88.5 Allergy status to narcotic agent; Z88.0 Allergy status to penicillin; Z88.8 Allergy status to other drugs, medicaments and biological substances; Z87.891 Personal history of nicotine dependence

== ENCOUNTER → 2017-02-17 | Outpatient (REF) | payer MEDICARE ==
[~2017-02-17] MED LIST changes: +AMIT50TA PO; +AMLO10TA2 PO; +ASPI81TAEC PO; +BACL-67 PO; +CYMB60CA3 PO; +INDA125TA PO; +LEVA250T PO; +MAG400TA PO; +METO-209 PO; +NEXI40CA PO; +ZETI10TA2 PO
== END ==
LOC: M LAB REF 16:59
PROVIDERS: ATTEND Internal Medicine
DX: Z01.89 Encounter for other specified special examinations (principal)

== ENCOUNTER → 2017-06-17 | Outpatient (REF) | payer MEDICARE ==
[~2017-06-17] MED LIST changes: -BACL-67 PO; +BACL1TAB9 PO; +INVO1TAB2 PO; +LEVA1TAB PO; -LEVA250T PO; +METF500T13 PO; -METO-209 PO; +METO1TAB33 PO; +MULT1TAB10 PO; +ONGL10TA3 PO; -ZETI10TA2 PO; +ZETI10TA30 PO; +ZOLO100T PO
[2017-06-17 19:15] LABS: BACTERIA, URINE LARGE AMOUNT; HYALINE CAST, URINE NONE SEEN /lpf (0-1); MICROSCOPIC EXAM PERFORMED; RBC, URINE 0-1 /hpf (0-3); SQUAMOUS EPITHELIAL CELL URINE SMALL AMOUNT /hpf (SMALL AMT)
== END ==
LOC: M SMT 16:55
PROVIDERS: ATTEND Specialist
DX: N81.11 Cystocele, midline (principal); R32 Unspecified urinary incontinence; N31.9 Neuromuscular dysfunction of bladder, unspecified; Z79.82 Long term (current) use of aspirin; Z79.899 Other long term (current) drug therapy
CPT/HCPCS: 81002; 87088; 87186; G0463

== ENCOUNTER 2017-07-15 09:07 | Outpatient (CLI) | payer MEDICARE ==
[~2017-07-15] VITALS: Ht 156.2 cm; Wt 67.1 kg
[~2017-07-15 09:07] MED LIST changes: +PROPOFOL 200 MG/20 ML VIAL As Ordered ONE
[2017-07-15] MEDS ORDERED: NS 1,000 ML IV SCH (09:30)
[2017-07-15] MEDS ORDERED: LIDOCAINE 2% INJ 100 MG/5 ML SDV (FOR ANES.) As Ordered ONE (10:14)
--- NOTE | 2017-07-15 10:24 | ROOR ---
Patient Name: Jossue Acosta Procedure Date: 07/15/2017 9:55 AM Date of : 1950 Age: 66 Room: [facility] Gender: Female Note Status: Finalized Procedure: Colonoscopy Indications: Screening for colorectal malignant neoplasm Providers: Yogesh Talley Jr, MD Referring MD: TIMO DON JR, MD Requesting Provider: Medicines: Propofol per Anesthesia Complications: No immediate complications. Procedure: Pre-Anesthesia Assessment: - Prior to the procedure, a History and Physical was performed, and patient medications and allergies were reviewed. The patient is competent. The risks and benefits of the procedure and the sedation options and risks were discussed with the patient. All questions were answered and informed consent was obtained. Patient identification and proposed procedure were verified by the physician and the nurse in the pre-procedure area and in the procedure room. Mental Status Examination: alert and oriented. Airway Examination: normal oropharyngeal airway and neck mobility. Respiratory Examination: clear to auscultation. CV Examination: normal. ASA Grade Assessment: II - A patient with mild systemic disease. After reviewing the risks and benefits, the patient was deemed in satisfactory condition to undergo the procedure. The anesthesia plan was to use moderate sedation / analgesia (conscious sedation). Immediately prior to administration of medications, the patient was re-assessed for adequacy to receive sedatives. The heart rate, respiratory rate, oxygen saturations, blood pressure, adequacy of pulmonary ventilation, and response to care were monitored throughout the procedure. The physical status of the patient was re-assessed after the procedure. The Colonoscope was introduced through the anus and advanced to the cecum, identified by appendiceal orifice and ileocecal valve. The colonoscopy was performed without difficulty. The patient tolerated the procedure well. The quality of the bowel preparation was adequate and good. Findings: The perianal and digital rectal examinations were normal. Pertinent negatives include normal sphincter tone, no palpable rectal lesions and no anal lesion or abnormality was detected. A medium polyp was found in the cecum. The polyp was sessile. The polyp was removed with a hot snare. Resection and retrieval were complete. To prevent bleeding post-intervention, one hemostatic clip was successfully placed. There was no bleeding at the end of the procedure. The rectum, recto-sigmoid colon, sigmoid colon, descending colon and ascending colon appeared normal. A small polyp was found in the transverse colon. The polyp was removed with a hot snare. Resection and retrieval were complete. Impression: - One medium polyp in the cecum, removed with a hot snare. Resected and retrieved. Clip was placed. - The rectum, recto-sigmoid colon, sigmoid colon, descending colon and ascending colon are normal. - One small polyp in the transverse colon, removed with a hot snare. Resected and retrieved. Recommendation: - Telephone my office for pathology results in 1 week. Yogesh Talley MD Yogesh Talley Jr, MD 07/15/2017 10:24:05 AM This report has been signed electronically. Number of Addenda: 0 Note Initiated On: 07/15/2017 9:55 AM Estimated Blood Loss: Estimated blood loss: none.
[2017-07-15 10:45] VITALS: BP 120/73
== END 2017-07-15 10:59 | disposition home or self-care (01) ==
LOC: M OPP 09:07
PROVIDERS: ATTEND Surgery
DX: Z12.11 Encounter for screening for malignant neoplasm of colon (principal); D12.0 Benign neoplasm of cecum; D12.3 Benign neoplasm of transverse colon; Z86.010 Personal history of colon polyps; I10 Essential (primary) hypertension; E78.00 Pure hypercholesterolemia, unspecified; E11.9 Type 2 diabetes mellitus without complications; K58.9 Irritable bowel syndrome, unspecified; R12 Heartburn; L40.9 Psoriasis, unspecified; F41.9 Anxiety disorder, unspecified; F32.9 Major depressive disorder, single episode, unspecified; G35 Multiple sclerosis; N81.11 Cystocele, midline; N31.9 Neuromuscular dysfunction of bladder, unspecified; J44.9 Chronic obstructive pulmonary disease, unspecified; R06.83 Snoring; Z87.440 Personal history of urinary (tract) infections; Z87.891 Personal history of nicotine dependence; Z88.8 Allergy status to other drugs, medicaments and biological substances; Z88.0 Allergy status to penicillin; Z88.5 Allergy status to narcotic agent; Z79.82 Long term (current) use of aspirin; Z79.899 Other long term (current) drug therapy; Z80.42 Family history of malignant neoplasm of prostate

== ENCOUNTER 2017-11-01 07:15 | Day surgery (SDC) | payer MEDICARE ==
[2017-11-01] VITALS (10 sets, daily range): BP systolic 130–190; BP diastolic 65–91
[~2017-11-01] VITALS: Ht 154.9 cm; Wt 66.2 kg
[~2017-11-01 07:15] MED LIST changes: +LIDOCAINE 2% INJ 100 MG/5 ML SDV (FOR ANES.) As Ordered ONE; +MIDAZOLAM INJ 2 MG/2 ML VIAL (J2250) As Ordered ONE; +ONDANSETRON 4MG/2ML VIAL (J2405) As Ordered ONE; +ROCURONIUM BROMIDE 50 MG/5 ML VIAL As Ordered ONE; +fentaNYL 100 MCG/2 ML INJECTION (J3010) As Ordered ONE
[2017-11-01] MEDS ORDERED: LR 1,000 ML IV ONE (07:30)
[2017-11-01] MEDS ORDERED: PROPOFOL 200 MG/20 ML VIAL As Ordered ONE (07:54)
[2017-11-01] MEDS ORDERED: TRIMETHOPRIM/SULFAMETHOXAZOLE 160 MG in D5W 250 ML IV ONE (08:00)
[2017-11-01] MEDS ORDERED: BUPIVACAINE/EPIN 0.5% 30 ML VIAL As Ordered ONE (08:48)
[2017-11-01] MEDS ORDERED: METHYLENE BLUE 0.5% (5MG/ML) 10 ML AMP (PROVAYBLUE)(Q9968 PER 1MG) As Ordered ONE (08:48)
[2017-11-01] MEDS ORDERED: LIDOCAINE 1% SDV INJ 30 ML VIAL As Ordered ONE (08:48)
[2017-11-01] MEDS ORDERED: ESTROGENS VAGINAL CREAM 30GM As Ordered ONE (08:48)
[2017-11-01] MEDS ORDERED: BUPIVACAINE HCL 0.25% 30 ML VIAL As Ordered ONE (08:48)
[2017-11-01] MEDS ORDERED: BACITRACIN PWD 50,000 UNITS VIAL As Ordered ONE (08:49)
[2017-11-01] MEDS ORDERED: ROCURONIUM BROMIDE 50 MG/5 ML VIAL As Ordered ONE (09:26)
[2017-11-01] MEDS ORDERED: PHENYLephrine HCL 500 MCG/5 ML (100MCG/ML) SYRINGE (J2370) As Ordered ONE (09:26)
[2017-11-01] MEDS ORDERED: FUROSEMIDE 100 MG/10 ML VIAL (J1940) As Ordered ONE (09:58)
[2017-11-01] MEDS ORDERED: GLYCOPYRROLATE INJ 0.2 MG/ML 2 ML VIAL As Ordered ONE (10:04)
[2017-11-01] MEDS ORDERED: NEOSTIGMINE 10 MG/10 ML VIAL (J2710) As Ordered ONE (10:04)
[2017-11-01] MEDS ORDERED: LABETALOL HCL 100 MG/20 ML VIAL As Ordered ONE (10:40)
[2017-11-01] MEDS ORDERED: LR 1,000 ML IV SCH (11:00)
[2017-11-01] MEDS ORDERED: fentaNYL 100 MCG/2 ML INJECTION (J3010) IV PRN (11:00)
[2017-11-01] MEDS ORDERED: ONDANSETRON 4MG/2ML VIAL (J2405) IV PRN ×2 (11:00→13:45)
[2017-11-01] MEDS ORDERED: PERCOCET 5MG/325MG TAB PO PRN (11:00)
[2017-11-01] MEDS ORDERED: D5W/0.45% SODIUM CHLORIDE 1,000 ML IV SCH (13:00)
[2017-11-01] MEDS ORDERED: MORPHINE SULFATE ORAL SOLN 10 MG/5 ML UD PO PRN (13:00)
[2017-11-01] MEDS: SENOKOT S TAB PO SCH ×2 (13:36→19:54)
[2017-11-01] MEDS: ACETAMINOPHEN TAB 650MG DOSE (2X325MG) PO PRN ×2 (13:37→19:53)
--- NOTE | 2017-11-01 17:13 | RO ---
DATE OF PROCEDURE: 11/01/2017 PREOPERATIVE DIAGNOSIS: A grade 3-4 cystocele without significant uterine descensus or rectocele. POSTOPERATIVE DIAGNOSIS: A grade 3-4 cystocele without significant uterine descensus or rectocele. PROCEDURE: Anterior colporrhaphy with the use of cadaveric fascia pancho, vaginal vault suspension, and cystoscopy. SURGEON: Dr. Mary Fuentes ANESTHESIA: General. MEDICATIONS: Bactrim 180 mg preoperatively. DRAINS: 18-Malawian Bright catheter. SPECIMENS: None. INDICATIONS FOR PROCEDURE: The patient is a 67-year-old female with multiple sclerosis and complaints of pelvic prolapse. She began noticing a bulge several months ago and she feels it constantly and finds it very bothersome. She feels that she is unable to have sexual relations, and this has been quite painful for her prior to intervention. With the MS, she does have some urinary urgency and urge incontinence and at other times she has difficulty emptying her bladder. A urodynamic study showed no significant abnormalities. After discussing all different options, alternatives, risks, and benefits, it was decided to go ahead with a cystocele repair and the vaginal vault suspension. Since she had no uterine prolapse and no rectoceles, it was decided not to intervene, but she clearly understood that these could prolapse in the future. We discussed the major risks of the procedure including but not limited to the risks of general anesthesia, reactions to medication, bleeding, infection, recurrence, postprocedural pain including continued pain with intercourse, and postoperative irritative and/or obstructive voiding symptoms, which she has also had preoperatively. Informed consent was obtained in both verbal and written form. DESCRIPTION OF PROCEDURE: The patient was brought into the operating room. Sequential compression devices were in place and preoperative antibiotics had been given. General anesthesia was induced. She was placed in the lithotomy position and careful attention was paid that her pressure points were well padded and protected. She was prepped and draped in the usual fashion. An #18-Malawian Bright catheter was placed to gravity drainage. A [place] retractor was utilized. Next, 0.5% Marcaine with epinephrine was injected into the anterior vaginal wall, and an incision was made from the level of the bladder neck back to the uterus. Vaginal mucosa was sharply dissected free from underlying endocervical fascia. At this point, a primary repair was done bringing endocervical fascia back together in the midline using #2-0 chromic suture. Next, a Capio needle was placed through Omar's ligaments anteriorly at the level of the bladder neck and then through sacrospinous ligaments posteriorly for the vaginal vault suspension. A piece of cadaveric fascia pancho 4 x 7 was trimmed to size and this had been soaked in normal saline. The Capio needles were then placed through the fascial graft and the vaginal vault and cystocele were completely suspended when these were tied down. Copious antibiotic irrigation was utilized and vaginal mucosa was closed using a running locking #2-0 chromic suture. Cystoscopy had been done, and the urethra was open without any evidence of lesions or strictures. Both ureteral orifices were seen with excellent efflux of methylene blue. There were no sutures seen through the bladder. There was no evidence of stones, erythematous patches, lesions, or other abnormalities. Next, 2-inch iodoform packing was placed in the vagina. The Bright catheter was replaced after the cystoscopy. The patient was returned to the recovery room in stable condition.
[2017-11-01] MEDS: BACLOFEN 10 MG TAB PO SCH (19:53)
[2017-11-01] MEDS: BACTRIM 160MG/800MG DS TAB PO SCH (19:55)
[2017-11-01] MEDS ORDERED: LOSARTAN 50 MG TAB PO SCH (21:00)
[2017-11-01] MEDS ORDERED: AMITRIPTYLINE 50 MG TAB PO SCH (21:00)
[2017-11-02] VITALS: BP 170/81
[2017-11-02] MEDS: ACETAMINOPHEN TAB 650MG DOSE (2X325MG) PO PRN ×2 (01:08→09:07)
[2017-11-02 04:00] VITALS: BP 174/83
[2017-11-02 07:14] LABS: MEAN CORPUSCULAR HEMOGLOBIN 26.4 pg (27.0-33.0); MEAN CORPUSCULAR HGB CONC 32.2 g/dl (32.0-36.5); MEAN CORPUSCULAR VOLUME 82.2 fl (80.0-96.0); PLATELET COUNT, AUTOMATED 213 10^3/uL (150-450); RED CELL DISTRIBUTION WIDTH 15.1 % (11.5-14.5)
[2017-11-02 07:29] LABS: CALCIUM LEVEL 9.1 MG/DL (8.8-10.2); CREATININE FOR GFR 0.99 MG/DL (0.55-1.02); GLOMERULAR FILTRATION RATE 59.4 (>45); POTASSIUM SERUM 3.5 MEQ/L (3.5-5.1)
[2017-11-02 08:00] VITALS: BP 143/81
[2017-11-02 08:26] VITALS: BP 143/81
[2017-11-02] MEDS: SENOKOT S TAB PO SCH (08:27)
[2017-11-02] MEDS: BACTRIM 160MG/800MG DS TAB PO SCH (08:27)
[2017-11-02] MEDS: BACLOFEN 10 MG TAB PO SCH (08:28)
[2017-11-02] MEDS ORDERED: METOPROLOL SUCC (TopROL XL) 100MG *XL* TAB PO SCH (09:00)
[2017-11-02] MEDS ORDERED: MULTIVITAMINS/MINERALS THERAP 1 TAB PO SCH (09:00)
[2017-11-02] MEDS ORDERED: PANTOPRAZOLE 40MG TAB (PROTONIX) PO SCH (09:00)
[2017-11-02] MEDS ORDERED: SERTRALINE 100 MG TAB PO SCH (09:00)
[2017-11-02] MEDS ORDERED: amLODIPine 5 MG TAB PO SCH (09:00)
== END 2017-11-02 13:30 | disposition home or self-care (01) ==
LOC: M SDC 07:15 → M PED 12:31 → M SDC 11-02 13:30
PROVIDERS: ATTEND Specialist
DX: N81.10 Cystocele, unspecified (principal); G35 Multiple sclerosis; R39.15 Urgency of urination; N39.41 Urge incontinence; I10 Essential (primary) hypertension; E11.42 Type 2 diabetes mellitus with diabetic polyneuropathy; K58.9 Irritable bowel syndrome, unspecified; M12.9 Arthropathy, unspecified; L40.9 Psoriasis, unspecified; F41.9 Anxiety disorder, unspecified; F32.9 Major depressive disorder, single episode, unspecified; J44.9 Chronic obstructive pulmonary disease, unspecified; R06.83 Snoring; Z88.0 Allergy status to penicillin; Z88.5 Allergy status to narcotic agent; Z88.8 Allergy status to other drugs, medicaments and biological substances; Z79.899 Other long term (current) drug therapy; Z79.82 Long term (current) use of aspirin; Z79.84 Long term (current) use of oral hypoglycemic drugs; Z87.891 Personal history of nicotine dependence; Z86.718 Personal history of other venous thrombosis and embolism; Z87.440 Personal history of urinary (tract) infections; Z98.51 Tubal ligation status; Z96.1 Presence of intraocular lens
CPT/HCPCS: 36415; 52000; 57240; 57282; 80048; 85027; C1762; J1940; J2250; J2370; J2405; J2710; J3010; Q9968

== ENCOUNTER → 2017-11-18 | Outpatient (REF) | payer MEDICARE | LOC: M SMT 16:58 | DX: R32 Unspecified urinary incontinence (principal) | CPT/HCPCS: 81001 ==

== ENCOUNTER → 2018-01-05 | Outpatient (REF) | payer MEDICARE ==
[2018-01-05 19:45] LABS: BACTERIA, URINE SMALL AMOUNT; HYALINE CAST, URINE 0-1 /lpf (0-1); RENAL EPITHELIAL CELLS, URINE SMALL AMOUNT /hpf; SQUAMOUS EPITHELIAL CELL URINE LARGE AMOUNT /hpf (SMALL AMT); TRANSITIONAL EPI CELLS, URINE MOD AMOUNT /hpf
[2018-01-05 19:46] LABS: MICROSCOPIC EXAM PERFORMED
== END ==
LOC: M SMT 16:50
DX: R32 Unspecified urinary incontinence (principal)
CPT/HCPCS: 81015

== ENCOUNTER → 2018-01-12 | Outpatient (CLI) | payer MEDICARE ==
[2018-01-12 14:45] LABS: CREATININE FOR GFR 0.95 MG/DL (0.55-1.30); GLOMERULAR FILTRATION RATE > 60.0 (>45)
[2018-01-12 14:45] LABS: BLOOD UREA NITROGEN 12 MG/DL (7-18)
== END ==
LOC: M LAB 13:21
DX: R10.84 Generalized abdominal pain (principal)
CPT/HCPCS: 82565

== ENCOUNTER → 2018-02-11 | Outpatient (CLI) | payer MEDICARE ==
[~2018-02-11] MED LIST changes: -/BACL20TA OR; -/ESOM40CA OR; -ACET65TA OR; -ACTOPLUS MET 15/850 PO; -AMBI5TAB OR; -AMIT25TA2 OR; -AMIT50TA PO; -AMLO10TA2 PO; -AMLO5TAB2 PO; -ASPI81TA83 OR; -ASPI81TAEC PO; -BACL1TAB9 PO; -CHLORTHALIDONE PO; -CYMB60CA3 PO; -CYMBALTA PO; -DIOV160T5 OR; +GASTROGRAFIN SOLUTION 30ML (Q9963) As Ordered; -GLUC1000 OR; -HALO5OI EXT; -INDA125TA PO; -INVO1TAB2 PO; +ISOVUE-370 76% 100ML VIAL (Q9967) As Ordered; -JANU100T PO; -LEVA1TAB PO; -LIDOCAINE 2% INJ 100 MG/5 ML SDV (FOR ANES.) As Ordered ONE; -LOSA100T36 PO; -MAG400TA PO; -METF500T PO; -METF500T13 PO; -METO100T3 PO; -METO1TAB33 PO; -MIDAZOLAM INJ 2 MG/2 ML VIAL (J2250) As Ordered ONE; -MILKSUS OR; -MULT1TAB10 PO; -NEXI40CA PO; -ONDANSETRON 4MG/2ML VIAL (J2405) As Ordered ONE; -ONGL10TA3 PO; -ONGL5TAB PO; -PROPOFOL 200 MG/20 ML VIAL As Ordered ONE; -REBIF SC; -ROCURONIUM BROMIDE 50 MG/5 ML VIAL As Ordered ONE; -SIMV20TA2 OR; -TOPRAL XL PO; -VITAMIN D PO; -ZETI10TA21 PO; -ZETI10TA30 PO; -ZOLO100T PO; -fentaNYL 100 MCG/2 ML INJECTION (J3010) As Ordered ONE
== END ==
LOC: M RAD 12:03
DX: R10.9 Unspecified abdominal pain (principal)
CPT/HCPCS: Q9963

== ENCOUNTER 2018-04-15 07:02 | Day surgery (SDC) | payer MEDICARE ==
[2018-04-15] MEDS: NS 1,000 ML IV (07:00)
[2018-04-15] MEDS ORDERED: PROPOFOL 200 MG/20 ML VIAL As Ordered ×2 (07:12)
[2018-04-15] MEDS ORDERED: LIDOCAINE 2% INJ 100 MG/5 ML SDV (FOR ANES.) As Ordered (07:13)
== END 2018-04-15 08:34 | disposition home or self-care (01) ==
LOC: M OPP 07:02
DX: R19.7 Diarrhea, unspecified (principal); K64.8 Other hemorrhoids; I10 Essential (primary) hypertension; E78.5 Hyperlipidemia, unspecified; E11.9 Type 2 diabetes mellitus without complications; K58.9 Irritable bowel syndrome, unspecified; R10.9 Unspecified abdominal pain; K21.9 Gastro-esophageal reflux disease without esophagitis; Z86.718 Personal history of other venous thrombosis and embolism; R06.02 Shortness of breath; M19.90 Unspecified osteoarthritis, unspecified site; M81.0 Age-related osteoporosis without current pathological fracture; G35 Multiple sclerosis; M79.7 Fibromyalgia; Z87.448 Personal history of other diseases of urinary system; L40.9 Psoriasis, unspecified; F41.9 Anxiety disorder, unspecified; F32.9 Major depressive disorder, single episode, unspecified; Z78.0 Asymptomatic menopausal state; J44.9 Chronic obstructive pulmonary disease, unspecified; R06.83 Snoring; Z87.440 Personal history of urinary (tract) infections; Z87.891 Personal history of nicotine dependence; Z88.8 Allergy status to other drugs, medicaments and biological substances; Z88.5 Allergy status to narcotic agent; Z88.0 Allergy status to penicillin; Z79.82 Long term (current) use of aspirin; Z79.899 Other long term (current) drug therapy
CPT/HCPCS: 45380

== ENCOUNTER → 2018-11-03 | Outpatient (REF) | payer MEDICARE ==
[2018-11-04 14:16] LABS: AMORPHOUS SEDIMENT SMALL (NEGATIVE); BACTERIA, URINE AUTO NEGATIVE (NEGATIVE); CALCIUM OXALATE CRYSTALS LARGE; MUCUS, URINE SMALL (NEGATIVE); RBC, URINE AUTO 28 /HPF (0-3); SQUAMOUS EPITHELIAL CELL UR AU 3 /HPF (0-6); TRANSITIONAL EPITHELIAL AUTO 2 /HPF; WBC, URINE AUTO TNTC /HPF (0-3)
== END ==
LOC: M SMT 13:07
DX: R32 Unspecified urinary incontinence (principal)
CPT/HCPCS: 81015

== ENCOUNTER 2018-12-27 01:31 | Emergency (ER) | payer MEDICARE ==
[~2018-12-27 01:31] MED LIST changes: +/BACL20TA OR; +/ESOM40CA OR; +ACET65TA OR; +ACTOPLUS MET 15/850 PO; +AMBI5TAB OR; +AMIT25TA2 OR; +AMIT50TA PO; +AMLO10TA5 PO; +AMLO5TAB2 PO; +AMLO5TAB6 PO; +ASPI81TA83 OR; +ASPI81TAEC PO; +BACL1TAB9 PO; +CHLORTHALIDONE PO; +CYMB60CA3 PO; +CYMBALTA PO; +D 202000 PO; +DIOV160T5 OR; -GASTROGRAFIN SOLUTION 30ML (Q9963) As Ordered; +GLUC1000 OR; +HALO5OI EXT; +INDA125TA PO; +INVO1TAB2 PO; -ISOVUE-370 76% 100ML VIAL (Q9967) As Ordered; +JANU100T PO; +LEVA250T13 PO; +LOSA100T36 PO; +LOSA100T50 PO; +MAG400TA PO; +METF500T PO; +METF500T13 PO; +METO100T3 PO; +METO1TAB33 PO; +MILKSUS OR; +MULT1TAB10 PO; +NEXI40CA PO; +ONGL10TA3 PO; +ONGL5TAB PO; +REBIF SC; +SIMV20TA2 OR; +TOPRAL XL PO; +VITAMIN D PO; +ZETI10TA21 PO; +ZETI10TA30 PO; +ZOLO100T PO
[2018-12-27 01:48] VITALS: BP 162/90
== END 2018-12-27 02:27 | disposition home or self-care (01) ==
LOC: M ED 01:31
DX: R09.89 Other specified symptoms and signs involving the circulatory and respiratory systems (principal); I10 Essential (primary) hypertension; G35 Multiple sclerosis; K21.9 Gastro-esophageal reflux disease without esophagitis; F41.9 Anxiety disorder, unspecified; Z79.899 Other long term (current) drug therapy; Z79.82 Long term (current) use of aspirin; Z88.0 Allergy status to penicillin; Z88.5 Allergy status to narcotic agent; Z88.8 Allergy status to other drugs, medicaments and biological substances

== ENCOUNTER → 2019-01-12 | Outpatient (REF) | payer MEDICARE | LOC: M SMT 17:29 | PROVIDERS: ATTEND Nurse Practitioner Family | DX: N89.8 Other specified noninflammatory disorders of vagina (principal) | CPT/HCPCS: 87480; 87510; 87660; G0463 ==

== ENCOUNTER → 2019-07-11 | Outpatient (REF) | payer MEDICARE ==
[~2019-07-11] MED LIST changes: -/BACL20TA OR; -/ESOM40CA OR; +BACL1TAB9 OR; +HALO0.0511 EXT; -HALO5OI EXT; +NEXI1CAP3 OR; +ZETI10TA16 PO; -ZETI10TA30 PO
== END ==
LOC: M LAB REF 17:16
PROVIDERS: ATTEND Internal Medicine
DX: N76.0 Acute vaginitis (principal); N30.90 Cystitis, unspecified without hematuria

== ENCOUNTER → 2019-07-20 | Outpatient (REF) | payer MEDICARE ==
[2019-07-20 17:52] LABS: PERCENT SATURATION 12.7 % (13.2-45.0)
== END ==
LOC: M LAB REF 16:21
PROVIDERS: ATTEND Internal Medicine
DX: D50.9 Iron deficiency anemia, unspecified (principal)

== ENCOUNTER → 2020-01-01 | Outpatient (REF) | payer MEDICARE ==
[2020-01-01 13:23] LABS: PERCENT SATURATION 7.8 % (13.2-45.0)
== END ==
LOC: M LAB REF 12:26
PROVIDERS: ATTEND Internal Medicine
DX: D50.9 Iron deficiency anemia, unspecified (principal)

== ENCOUNTER 2020-01-16 07:56 | Outpatient (CLI) | payer MEDICARE ==
[~2020-01-16] VITALS: Ht 170.2 cm; Wt 67.3 kg
[2020-01-16 08:20] VITALS: BP 154/86
[2020-01-16] MEDS ORDERED: GLIM2TAB4 PO (08:51)
[2020-01-16] MEDS ORDERED: REME15TA PO (08:51)
[2020-01-16] MEDS ORDERED: IRON SUCROSE 475 MG in NS 250 ML IV ONE (09:00)
[2020-01-16] MEDS ORDERED: IRON SUCROSE 25 MG in NS 25 ML IV ONE (09:00)
[2020-01-16 09:30] VITALS: BP 141/82
[2020-01-16 09:45] VITALS: BP 148/78
[2020-01-16 10:45] VITALS: BP 144/68
[2020-01-16 11:45] VITALS: BP 152/88
[2020-01-16 13:30] VITALS: BP 142/68
== END 2020-01-16 13:30 | disposition home or self-care (01) ==
LOC: M INFU 07:56
PROVIDERS: ATTEND Internal Medicine
DX: D50.9 Iron deficiency anemia, unspecified (principal); Z88.0 Allergy status to penicillin; Z88.1 Allergy status to other antibiotic agents; Z88.5 Allergy status to narcotic agent; Z88.8 Allergy status to other drugs, medicaments and biological substances
CPT/HCPCS: 96365; 96366; J1756

== ENCOUNTER → 2020-06-28 | Outpatient (REF) | payer MEDICARE ==
[~2020-06-28] MED LIST changes: -AMLO10TA5 PO; +AMLO1TAB24 PO; +AMLO1TAB25 PO; -AMLO5TAB6 PO; +GLIM2TAB4 PO; +REME15TA PO
[2020-08-12 10:15] LABS: PERCENT SATURATION 18.9 % (13.2-45.0)
== END ==
LOC: M LAB REF 15:31
PROVIDERS: ATTEND Internal Medicine
DX: D50.9 Iron deficiency anemia, unspecified (principal)

== ENCOUNTER → 2020-10-31 | Outpatient (REF) | payer MEDICARE ==
[~2020-10-31] MED LIST changes: +MIRT-62 PO; -REME15TA PO
[2020-10-31 18:31] LABS: BACTERIA, URINE AUTO 1+ (NEGATIVE); RBC, URINE AUTO 3 /HPF (0-3); SQUAMOUS EPITHELIAL CELL UR AU 1 /HPF (0-6); WBC, URINE AUTO 41 /HPF (0-3)
== END ==
LOC: M SMT 16:50
PROVIDERS: ATTEND Specialist
DX: N31.9 Neuromuscular dysfunction of bladder, unspecified (principal); R32 Unspecified urinary incontinence; R39.15 Urgency of urination

== ENCOUNTER → 2020-11-06 | Outpatient (REF) | payer MEDICARE ==
[2020-11-06 14:08] LABS: APPEARANCE, URINE HAZY (CLEAR); BACTERIA, URINE AUTO 1+ (NEGATIVE); BILIRUBIN, URINE AUTO NEGATIVE (NEGATIVE); BLOOD, URINE BLOOD 1+ (NEGATIVE); COLOR, URINE YELLOW (YELLOW); GLUCOSE, URINE (UA) AUTO 1+ mg/dL (NEGATIVE); KETONE, URINE AUTO NEGATIVE (NEGATIVE); LEUKOCYTE ESTERASE, URINE AUTO 3+ (NEGATIVE); NITRITE, URINE AUTO POSITIVE (NEGATIVE); PROTEIN, URINE AUTO NEGATIVE (NEGATIVE); RBC, URINE AUTO 9 /HPF (0-3); SPECIFIC GRAVITY URINE AUTO 1.011 (1.002-1.035); SQUAMOUS EPITHELIAL CELL UR AU 0 /HPF (0-6); UROBILINOGEN, URINE AUTO 0.2 mg/dL (0.0-2.0); WBC, URINE AUTO 58 /HPF (0-3)
== END ==
LOC: M SMT 12:45
PROVIDERS: ATTEND Specialist
DX: N39.0 Urinary tract infection, site not specified (principal)

== ENCOUNTER → 2020-12-19 | Outpatient (REF) | payer OTHER ==
[2020-12-21 04:10] LABS: LDL DIRECT 140 mg/dL (0-99)
== END ==
LOC: M LAB REF 16:15
PROVIDERS: ATTEND Internal Medicine
DX: E78.00 Pure hypercholesterolemia, unspecified (principal)

== ENCOUNTER → 2020-12-25 | Outpatient (CLI) | payer OTHER ==
[~2020-12-25] MED LIST changes: -MAG400TA PO; +MAGN400T35 PO
== END ==
LOC: M LABSMTC 12:30
PROVIDERS: ATTEND Internal Medicine Cardiovascular Disease
DX: Z20.822 Contact with and (suspected) exposure to COVID-19 (principal)

== ENCOUNTER → 2021-01-09 | Outpatient (REF) | payer OTHER | LOC: M LAB REF 16:24 | PROVIDERS: ATTEND Internal Medicine | DX: Z01.818 Encounter for other preprocedural examination (principal); I25.119 Atherosclerotic heart disease of native coronary artery with unspecified angina pectoris ==

== ENCOUNTER 2021-05-22 20:27 | Emergency (ER) | payer OTHER ==
[~2021-05-22] VITALS: Ht 157.5 cm; Wt 68.2 kg
[~2021-05-22 20:27] MED LIST changes: +ASPI-569 PO; -ASPI81TAEC PO
[2021-05-22] MEDS ORDERED: ISOS1TAB35 (20:44)
[2021-05-22] MEDS ORDERED: CLOP75TA2 (20:44)
[2021-05-22] MEDS ORDERED: MIRT1TAB (20:44)
--- NOTE | 2021-05-22 21:55 | REPVR ---
PROCEDURE INFORMATION: Exam: CT Cervical Spine Without Contrast Exam date and time: 05/22/2021 8:39 PM Age: 70 years old Clinical indication: Injury or trauma; Fall; Blunt trauma; Additional info: Fall/plavix TECHNIQUE: Imaging protocol: Computed tomography images of the cervical spine without contrast. Radiation optimization: All CT scans at this facility use at least one of these dose optimization techniques: automated exposure control; mA and/or kV adjustment per patient size (includes targeted exams where dose is matched to clinical indication); or iterative reconstruction. COMPARISON: US Duplex,carotid (complete) 11/24/2016 10:01 AM FINDINGS: Bones/joints: No acute fracture. Normal alignment. Discs/Spinal canal/Neural foramina: There is multilevel uncovertebral and facet hypertrophy with neural foramina narrowing. Lungs: Lung apices are normal. Soft tissues: Unremarkable. IMPRESSION: No acute abnormality. Electronically signed by: Gurmeet Aguirre On 05/22/2021 21:54:54 PM
--- NOTE | 2021-05-22 21:56 | REPVR ---
PROCEDURE INFORMATION: Exam: CT Head Without Contrast Exam date and time: 05/22/2021 8:39 PM Age: 70 years old Clinical indication: Injury or trauma; Fall; Blunt trauma (contusions or hematomas); Consciousness not specified; Additional info: Fall/plavix TECHNIQUE: Imaging protocol: Computed tomography of the head without contrast. Radiation optimization: All CT scans at this facility use at least one of these dose optimization techniques: automated exposure control; mA and/or kV adjustment per patient size (includes targeted exams where dose is matched to clinical indication); or iterative reconstruction. COMPARISON: MRI-Brain W/O FOLL BY WITH 11/23/2016 12:44 PM FINDINGS: Brain: Normal. No hemorrhage. Unremarkable white matter. No mass effect. Cerebral ventricles: No ventriculomegaly. Paranasal sinuses: Visualized sinuses are unremarkable. No fluid levels. Mastoid air cells: Visualized mastoid air cells are well aerated. Bones/joints: Unremarkable. No acute fracture. Soft tissues: Unremarkable. IMPRESSION: No acute intracranial abnormality. Electronically signed by: Gurmeet Aguirre On 05/22/2021 21:56:34 PM
--- NOTE | 2021-05-22 23:16 | REPVR ---
PROCEDURE INFORMATION: Exam: XR Left Hip Exam date and time: 05/22/2021 11:04 PM Age: 70 years old Clinical indication: Other: Left hip pain; Fall; Additional info: Left hip pain; S/P fall TECHNIQUE: Imaging protocol: XR Left hip. Views: 2 or 3 views hip with pelvis when performed. COMPARISON: CT ABD PELVIS W/O FOL BY SERAFIN 02/11/2018 1:34 PM FINDINGS: Bones/joints: Unremarkable. No acute fracture. Soft tissues: Unremarkable. IMPRESSION: No acute findings. Electronically signed by: Gurmeet Aguirre On 05/22/2021 23:15:46 PM
[2021-05-22 23:42] VITALS: BP 160/80
== END 2021-05-23 00:02 | disposition home or self-care (01) ==
LOC: M ED 20:27
DX: S70.02XA Contusion of left hip, initial encounter (principal); S00.93XA Contusion of unspecified part of head, initial encounter; W19.XXXA Unspecified fall, initial encounter; Y92.009 Unspecified place in unspecified non-institutional (private) residence as the place of occurrence of the external cause; Y93.9 Activity, unspecified; Y99.9 Unspecified external cause status; I25.10 Atherosclerotic heart disease of native coronary artery without angina pectoris; E11.9 Type 2 diabetes mellitus without complications; I10 Essential (primary) hypertension; K58.9 Irritable bowel syndrome, unspecified; F41.9 Anxiety disorder, unspecified; F32.9 Major depressive disorder, single episode, unspecified; G35 Multiple sclerosis; Z79.82 Long term (current) use of aspirin; Z79.899 Other long term (current) drug therapy; Z88.0 Allergy status to penicillin; Z88.5 Allergy status to narcotic agent; Z88.6 Allergy status to analgesic agent; Z88.8 Allergy status to other drugs, medicaments and biological substances

== ENCOUNTER → 2021-06-17 | Outpatient (CLI) | payer OTHER ==
[~2021-06-17] MED LIST changes: +CLOP75TA2; +ISOS1TAB35; +MIRT1TAB
--- NOTE | 2021-06-17 16:42 | REP ---
INDICATION: LOW BACK PAIN. COMPARISON: None. TECHNIQUE: Seven views of the lumbar spine are provided. FINDINGS: Lumbar vertebral body heights are preserved. Alignment is normal on lateral radiograph. Vascular calcification is noted in a normal caliber aorta. There is mild narrowing of the L4-5 disc. Pedicles and posterior elements are intact. There is no evidence of spondylolysis or spondylolisthesis. There is minimal facet hypertrophy bilaterally at L5-S1 and L4-5. Psoas margins are symmetric. Sacrum and SI joints are intact. There is mild diffuse osteopenia but the visualized lumbar and thoracic vertebral body heights are preserved. IMPRESSION: Mild disc space narrowing L4-5 and facet hypertrophy L5-S1 and L4-5 bilaterally. No acute bony abnormality seen. <Electronically signed by Nino Bill > 06/17/21 [id number]
== END ==
LOC: M WUC 14:39
PROVIDERS: ATTEND Physician Assistant Medical
DX: M54.5 Low back pain (principal)

== ENCOUNTER → 2021-07-23 | Outpatient (CLI) | payer OTHER ==
--- NOTE | 2021-07-27 11:29 | ECHO ---
ECHOCARDIOGRAM DATE OF PROCEDURE: 07/23/2021 Age: 70 Gender: Female Height: 157 cm Weight: 68 kg REFERRING PROVIDER: Jonatan Gerber [facility]. PATIENT LOCATION: Outpatient. REASON FOR THE STUDY: Pedal edema. MEASUREMENTS: 2D Measurements: IVS 1.3 cm LVPW 1.2 cm LV 3.4 cm Aortic root 3.3 cm LA 3.6 cm IVC 1.5 cm Doppler Measurements: Peak velocity across the aortic valve 1.1 m/sec Peak velocity across the LVOT 0.8 m/sec Mitral E 0.78 Mitral A 0.7 with a ratio of 1.07 Maximum tricuspid valve velocity 2.4 m/sec 2D COMMENTS: 1. Normal left ventricular size with a mildly increased left ventricular wall thickness. Left ventricular systolic ejection fraction is normal, estimated at 60-65%. 2. Normal left atrium. Normal right atrium and right ventricle. 3. The atrial septum appeared to be normal without evidence of defect or shunt. 4. Normal aortic root. 5. No pericardial effusion seen. 6. Mildly calcified aortic valve with normal leaflet excursion. Mildly calcified mitral annulus with normal anterior mitral valve leaflet motion. Normal tricuspid valve and pulmonic valve. The proximal pulmonary artery branches were not well visualized. 7. The inferior vena cava was not well visualized. DOPPLER: It detects trace mitral regurgitation, trace to mild tricuspid regurgitation and trace pulmonic regurgitation. The calculated pulmonary artery systolic pressure varies between 30-40 mmHg. Assessment of the left ventricular diastolic function appeared to be normal. IMPRESSION: 1. Normal global left ventricular systolic and diastolic function. 2. Aortic valve sclerosis without stenosis or aortic regurgitation. 3. Mitral annulus calcification with trace mitral regurgitation. 4. Trace to mild tricuspid regurgitation with probably mild pulmonary hypertension. 5. Trace pulmonic regurgitation.
== END ==
LOC: M CARPUL 09:52
PROVIDERS: ATTEND Physician Assistant Medical
DX: I08.9 Rheumatic multiple valve disease, unspecified (principal); R60.0 Localized edema

== ENCOUNTER → 2021-08-06 | Outpatient (CLI) | payer OTHER ==
--- NOTE | 2021-08-06 11:32 | REP ---
INDICATION: RT LEG PAIN / SWELLING. COMPARISON: None. TECHNIQUE: Multiple ultrasonographic images of the deep venous structures of the right lower extremity were obtained from the inguinal ligament to the ankle. Venous compression techniques, color doppler imaging, and augmentation techniques were also obtained where appropriate. As per the ACR guidelines the anterior tibial vein can not be effectively evaluated. Only compression techniques in the calf on the peroneal and posterior tibial veins was attempted/performed. FINDINGS: There is no abnormal echogenic material seen within any of the visualized deep venous structures that would suggest acute thrombosis. Coaptation is unremarkable throughout. Doppler interrogation shows an expected response to respiratory variability and augmentation in the thigh. Compression techniques in the calf showed no abnormality. The color flow images show what appears to be a normal vascular pattern throughout the thigh. IMPRESSION: There is no ultrasonographic evidence of deep venous thrombosis involving any of the visualized deep venous structures of the right lower extremity as described above. <Electronically signed by Burke Weldon > 08/06/21 [id number]
== END ==
LOC: M RAD 10:58
PROVIDERS: ATTEND Physician Assistant Medical
DX: R22.41 Localized swelling, mass and lump, right lower limb (principal)

== ENCOUNTER → 2021-09-16 | Outpatient (REF) | payer OTHER ==
[~2021-09-16] MED LIST changes: -CYMB60CA3 PO; +CYMB60CA4 PO
[2021-09-17 12:47] LABS: TOTAL PROTEIN 8.2 GM/DL (6.4-8.2)
[2021-09-17 13:05] LABS: PTH INTACT 102.3 PG/ML (18.5-88.0)
[2021-09-18 18:07] LABS: FREE KAPPA LIGHT CHAINS SERUM 168.2 mg/L (3.3-19.4); FREE LAMBDA LIGHT CHAINS SERUM 19.3 mg/L (5.7-26.3); KAPPA/LAMBDA RATIO SERUM 8.72 (0.26-1.65)
== END ==
LOC: M LAB REF 11:38
PROVIDERS: ATTEND Internal Medicine
DX: E78.00 Pure hypercholesterolemia, unspecified (principal); R35.0 Frequency of micturition

== ENCOUNTER → 2022-01-07 | Outpatient (REF) | payer MEDICARE, OTHER ==
[~2022-01-07] MED LIST changes: +LOSA100T45 PO; -LOSA100T50 PO
== END ==
LOC: M LAB REF 11:54
PROVIDERS: ATTEND Internal Medicine
DX: E83.52 Hypercalcemia (principal)

== ENCOUNTER 2022-03-03 14:39 | Emergency (ER) | payer MEDICARE, OTHER ==
[~2022-03-03] VITALS: Ht 157.5 cm; Wt 61.4 kg
[2022-03-03] MEDS ORDERED: OZEM2INJ (14:50)
[2022-03-03] MEDS ORDERED: OXYB10TA23 (14:51)
[2022-03-03] MEDS ORDERED: FURO20TA2 (14:51)
[2022-03-03] MEDS ORDERED: ROSU5TAB5 (14:51)
[2022-03-03] MEDS ORDERED: KETOROLAC 30 MG/ML 1ML VIAL IV ONE (17:35)
[2022-03-03] MEDS ORDERED: ACET-910 PO (18:28)
[2022-03-03] MEDS ORDERED: LIDO5DIS41 TD (18:28)
[2022-03-03] MEDS ORDERED: LIDOCAINE 5% (LIDODERM) PATCH TD ONE (18:30)
[2022-03-03 18:49] VITALS: BP 197/93
[2022-03-03] MEDS ORDERED: **NOTE PATIENT COMMENT** MISC XX SCH (21:00)
== END 2022-03-03 19:58 | disposition home or self-care (01) ==
LOC: M ED 14:39
DX: S20.211A Contusion of right front wall of thorax, initial encounter (principal); I25.10 Atherosclerotic heart disease of native coronary artery without angina pectoris; E11.9 Type 2 diabetes mellitus without complications; K58.9 Irritable bowel syndrome, unspecified; Z95.5 Presence of coronary angioplasty implant and graft; Z79.899 Other long term (current) drug therapy; Z88.0 Allergy status to penicillin; Z88.5 Allergy status to narcotic agent; Z88.6 Allergy status to analgesic agent; Z88.8 Allergy status to other drugs, medicaments and biological substances
CPT/HCPCS: 70450; 71250; 72125; 80047; 93005; 96374; 99284; J1885

== ENCOUNTER 2022-03-22 20:13 | Inpatient (IN) | payer MEDICARE ==
[~2022-03-22] VITALS: Ht 157.5 cm; Wt 65.7 kg
[~2022-03-22 20:13] MED LIST changes: +ACET-910 PO; -CLOP75TA2; +CLOP75TA2 PO; +FURO20TA2 PO; -ISOS1TAB35; +ISOS1TAB35 PO; +LIDO5DIS41 TD; -MIRT1TAB; +MIRT1TAB PO; +OXYB10TA23 PO; +OZEM2INJ INJ; +ROSU5TAB5 PO
[2022-03-22] MEDS: HumaLOG INSULIN (NovoLOG) PER UNIT SC SCH (21:00)
[2022-03-22 21:19] LABS: BASO # 0.1 10^3/uL (0.0-0.2); BASO % 0.8 % (0.0-1.0); EOS # 0.2 10^3/uL (0.0-0.5); EOS % 2.5 % (0.0-3.0); HEMATOCRIT 36.1 % (36.0-47.0); HEMOGLOBIN 11.7 g/dl (12.0-15.5); LYMPH # 1.3 10^3/uL (1.5-5.0); LYMPH % 17.7 % (24.0-44.0); MEAN CORPUSCULAR HEMOGLOBIN 26.9 pg (27.0-33.0); MEAN CORPUSCULAR HGB CONC 32.4 g/dl (32.0-36.5); MONO # 0.4 10^3/uL (0.0-0.8); MONO % 5.4 % (2.0-8.0); NEUTROPHILS # 5.5 10^3/uL (1.5-8.5); NEUTROPHILS % 73.1 % (36.0-66.0); PLATELET COUNT, AUTOMATED 232 10^3/uL (150-450); RED BLOOD COUNT 4.35 10^6/uL (4.00-5.40); WHITE BLOOD COUNT 7.5 10^3/uL (4.0-10.0)
[2022-03-22 21:52] LABS: INR 0.99; PROTHROMBIN TIME 13.5 SECONDS (12.7-14.5)
[2022-03-22 21:53] LABS: PARTIAL THROMBOPLASTIN TIME 30.8 SECONDS (25.9-37.0)
[2022-03-22] MEDS ORDERED: LOSARTAN 50MG TABLET PO ONE (21:55)
[2022-03-22] MEDS ORDERED: METOPROLOL SUCC (TopROL XL) 100MG *XL* TAB PO ONE (21:55)
[2022-03-22] MEDS ORDERED: amLODIPine 5 MG TAB PO ONE (21:55)
[2022-03-22 22:02] LABS: CALCIUM LEVEL 9.9 MG/DL (8.8-10.2); CREATININE FOR GFR 1.19 MG/DL (0.55-1.30); FREE T4 0.98 NG/DL (0.76-1.46); GLOMERULAR FILTRATION RATE 47.5 (>39); POTASSIUM SERUM 3.5 MEQ/L (3.5-5.1); THYROID STIMULATING HORMONE 1.55 uIU/ML (0.358-3.740)
[2022-03-22] MEDS: RAMELTEON 8 MG TAB (ROZEREM) PO SCH (23:00)
[2022-03-22] MEDS ORDERED: LABETALOL 100MG/20ML VIAL IV STA (23:08)
[2022-03-22] MEDS ORDERED: BACLOFEN 10 MG TAB PO ONE (23:35)
[2022-03-22] MEDS ORDERED: hydrALAZINE 20MG/ML 1ML VIAL (J0360 PER 20MG) IV STA (23:36)
[2022-03-22] MEDS ORDERED: MOM 30ML SUSPENSION UDC PO PRN (23:40)
[2022-03-22] MEDS ORDERED: DEXTROSE 50% 50 ML SYRINGE IV PRN (23:50)
[2022-03-22] MEDS ORDERED: GLUCOSE 4GM CHEW TABLET PO PRN (23:50)
[2022-03-22] MEDS ORDERED: GLUCAGON INJ 1MG VIAL SC PRN (23:50)
[2022-03-22 23:56] LABS: RSV AMPLIFICATION NEGATIVE (NEGATIVE)
[2022-03-23] MEDS ORDERED: BACL10TA2 PO (00:49)
[2022-03-23] MEDS ORDERED: D32000CA PO (00:49)
[2022-03-23] MEDS ORDERED: METF500T13 PO (00:49)
[2022-03-23] MEDS ORDERED: GLIM1TAB4 PO (00:49)
[2022-03-23] MEDS ORDERED: HOME MED LIST COMPLETE! XX SCH (00:50)
[2022-03-23] MEDS: RAMELTEON 8 MG TAB (ROZEREM) PO SCH (01:36)
[2022-03-23] MEDS ORDERED: PILL CUTTER 1 EACH XX PRN (02:05)
[2022-03-23] MEDS: ACETAMINOPHEN TAB 650MG DOSE (2X325MG) PO PRN ×3 (03:00→20:47)
[2022-03-23 08:38] LABS: HEMATOCRIT 34.1 % (36.0-47.0); HEMOGLOBIN 11.3 g/dl (12.0-15.5); MEAN CORPUSCULAR HEMOGLOBIN 26.7 pg (27.0-33.0); MEAN CORPUSCULAR HGB CONC 33.1 g/dl (32.0-36.5); MEAN CORPUSCULAR VOLUME 80.6 fl (80.0-96.0); PLATELET COUNT, AUTOMATED 210 10^3/uL (150-450); RED BLOOD COUNT 4.23 10^6/uL (4.00-5.40); WHITE BLOOD COUNT 8.7 10^3/uL (4.0-10.0)
[2022-03-23] MEDS: HumaLOG INSULIN (NovoLOG) PER UNIT SC SCH ×4 (08:44→20:41)
[2022-03-23] MEDS ORDERED: amLODIPine 5 MG TAB PO SCH (09:00)
[2022-03-23] MEDS: SERTRALINE 100 MG TAB PO SCH (09:12)
[2022-03-23] MEDS: ROSUVASTATIN 10 MG TAB (CRESTOR) PO SCH (09:12)
[2022-03-23] MEDS: ISOSORBIDE MON. (IMDUR) 30 MG XR TAB PO SCH (09:12)
[2022-03-23] MEDS: METOPROLOL SUCC (TopROL XL) 100MG *XL* TAB PO SCH (09:13)
[2022-03-23] MEDS: FUROSEMIDE 20 MG TAB PO SCH (09:14)
[2022-03-23] MEDS: ENOXAPARIN 40MG/0.4ML SYRINGE (J1650 PER 10MG) SC SCH (09:14)
[2022-03-23] MEDS: CLOPIDOGREL 75 MG TAB PO SCH (09:14)
[2022-03-23 09:29] LABS: ALBUMIN 3.7 GM/DL (3.2-5.2); BILIRUBIN,TOTAL 0.5 MG/DL (0.2-1.0); CALCIUM LEVEL 10.1 MG/DL (8.8-10.2); POTASSIUM SERUM 2.7 MEQ/L (3.5-5.1); TOTAL PROTEIN 7.2 GM/DL (6.4-8.2)
[2022-03-23] MEDS: oxyBUTYnin *DITROPAN XL* 5 MG TABCR PO SCH (10:27)
[2022-03-23] MEDS ORDERED: POTASSIUM CHLORIDE 10MEQ SR TABLET PO ONE ×2 (10:30→15:45)
[2022-03-23 15:22] LABS: CALCIUM LEVEL 9.8 MG/DL (8.8-10.2); CREATININE FOR GFR 1.2 MG/DL (0.55-1.30)
[2022-03-23 19:05] VITALS: BP 172/87
[2022-03-23 19:15] VITALS: BP 172/87
[2022-03-23 19:25] VITALS: BP 170/80
[2022-03-23] MEDS: LOSARTAN 50MG TABLET PO SCH (19:44)
[2022-03-23] MEDS ORDERED: RAMELTEON 8 MG TAB (ROZEREM) PO PRN (19:45)
[2022-03-23] MEDS: BACLOFEN 10 MG TAB PO SCH (20:41)
[2022-03-23] MEDS: AMITRIPTYLINE 50 MG TAB PO SCH (20:41)
[2022-03-23] MEDS: MIRTAZAPINE 7.5MG PER 1/2 TABLET PO SCH (20:41)
[2022-03-23 21:00] VITALS: BP 192/90
[2022-03-23 21:50] VITALS: BP 155/77
[2022-03-24] VITALS: BP 163/79
[2022-03-24 04:00] VITALS: BP 136/76
[2022-03-24 06:58] LABS: HEMATOCRIT 35.3 % (36.0-47.0); HEMOGLOBIN 11.4 g/dl (12.0-15.5); MEAN CORPUSCULAR HEMOGLOBIN 27.1 pg (27.0-33.0); MEAN CORPUSCULAR HGB CONC 32.3 g/dl (32.0-36.5); PLATELET COUNT, AUTOMATED 181 10^3/uL (150-450)
[2022-03-24 07:26] LABS: BLOOD UREA NITROGEN 11 MG/DL (7-18); CALCIUM LEVEL 10.2 MG/DL (8.8-10.2); CARBON DIOXIDE LEVEL 29 MEQ/L (21-32); CHLORIDE LEVEL 103 MEQ/L (98-107); CREATININE FOR GFR 0.96 MG/DL (0.55-1.30); GLOMERULAR FILTRATION RATE > 60.0 (>39); GLUCOSE, FASTING 162 MG/DL (70-100); POTASSIUM SERUM 3.1 MEQ/L (3.5-5.1); SODIUM LEVEL 141 MEQ/L (136-145)
[2022-03-24 08:00] VITALS: BP 181/85
[2022-03-24] MEDS ORDERED: POTASSIUM CHLORIDE 10MEQ SR TABLET PO ONE (08:30)
[2022-03-24] MEDS: ENOXAPARIN 40MG/0.4ML SYRINGE (J1650 PER 10MG) SC SCH (09:49)
[2022-03-24] MEDS: SERTRALINE 100 MG TAB PO SCH (09:49)
[2022-03-24] MEDS: FUROSEMIDE 20 MG TAB PO SCH (09:50)
[2022-03-24] MEDS: ROSUVASTATIN 10 MG TAB (CRESTOR) PO SCH (09:50)
[2022-03-24] MEDS: METOPROLOL SUCC (TopROL XL) 100MG *XL* TAB PO SCH (09:50)
[2022-03-24] MEDS: oxyBUTYnin *DITROPAN XL* 5 MG TABCR PO SCH (09:50)
[2022-03-24] MEDS: CLOPIDOGREL 75 MG TAB PO SCH (09:51)
[2022-03-24] MEDS: ISOSORBIDE MON. (IMDUR) 30 MG XR TAB PO SCH (09:51)
[2022-03-24] MEDS: HumaLOG INSULIN (NovoLOG) PER UNIT SC SCH ×4 (10:02→21:00)
[2022-03-24] MEDS: ACETAMINOPHEN TAB 650MG DOSE (2X325MG) PO PRN (10:02)
[2022-03-24 12:22] VITALS: BP 114/62
[2022-03-24] MEDS: AMITRIPTYLINE 50 MG TAB PO SCH (21:05)
[2022-03-24] MEDS: MIRTAZAPINE 7.5MG PER 1/2 TABLET PO SCH (21:05)
[2022-03-24] MEDS: BACLOFEN 10 MG TAB PO SCH (21:05)
[2022-03-24] MEDS: LOSARTAN 50MG TABLET PO SCH (21:06)
[2022-03-25 04:21] VITALS: BP 132/63
[2022-03-25 07:26] LABS: HEMATOCRIT 35.9 % (36.0-47.0); HEMOGLOBIN 11.5 g/dl (12.0-15.5); MEAN CORPUSCULAR HEMOGLOBIN 26.9 pg (27.0-33.0); MEAN CORPUSCULAR VOLUME 83.9 fl (80.0-96.0); PLATELET COUNT, AUTOMATED 182 10^3/uL (150-450); RED BLOOD COUNT 4.28 10^6/uL (4.00-5.40); WHITE BLOOD COUNT 5.3 10^3/uL (4.0-10.0)
[2022-03-25 07:47] LABS: CALCIUM LEVEL 10.6 MG/DL (8.8-10.2); POTASSIUM SERUM 3.3 MEQ/L (3.5-5.1)
[2022-03-25] MEDS: SERTRALINE 100 MG TAB PO SCH (08:07)
[2022-03-25] MEDS: ROSUVASTATIN 10 MG TAB (CRESTOR) PO SCH (08:07)
[2022-03-25] MEDS: FUROSEMIDE 20 MG TAB PO SCH (08:07)
[2022-03-25 08:08] VITALS: BP 162/92
[2022-03-25] MEDS: oxyBUTYnin *DITROPAN XL* 5 MG TABCR PO SCH (08:08)
[2022-03-25] MEDS: METOPROLOL SUCC (TopROL XL) 100MG *XL* TAB PO SCH (08:08)
[2022-03-25] MEDS: CLOPIDOGREL 75 MG TAB PO SCH (08:08)
[2022-03-25] MEDS: ISOSORBIDE MON. (IMDUR) 30 MG XR TAB PO SCH (08:09)
[2022-03-25] MEDS: HumaLOG INSULIN (NovoLOG) PER UNIT SC SCH ×2 (08:09→12:37)
[2022-03-25] MEDS: ENOXAPARIN 40MG/0.4ML SYRINGE (J1650 PER 10MG) SC SCH (08:10)
[2022-03-25] MEDS ORDERED: amLODIPine 5 MG TAB PO SCH (09:00)
[2022-03-25] MEDS ORDERED: POTASSIUM CHLORIDE 10MEQ SR TABLET PO ONE (12:30)
[2022-03-25] MEDS ORDERED: AMLO1TAB24 PO (12:32)
[2022-03-25] MEDS ORDERED: POTA-151 PO (12:32)
== END 2022-03-25 13:29 | disposition home or self-care (01) | DRG 305 ==
LOC: M ED 20:13 → M ED INP 23:36 → ENRESERV 03-23 18:24 → M PCU 03-23 19:05
PROVIDERS: ADMIT Family Medicine; ATTEND Internal Medicine
DX: I16.1 Hypertensive emergency (principal); N17.9 Acute kidney failure, unspecified; N39.0 Urinary tract infection, site not specified; E11.9 Type 2 diabetes mellitus without complications; K21.9 Gastro-esophageal reflux disease without esophagitis; G35 Multiple sclerosis; F32.A Depression, unspecified; I10 Essential (primary) hypertension; M81.0 Age-related osteoporosis without current pathological fracture; Z79.899 Other long term (current) drug therapy; Z88.0 Allergy status to penicillin; Z88.5 Allergy status to narcotic agent; Z88.8 Allergy status to other drugs, medicaments and biological substances

== ENCOUNTER → 2022-03-31 | Outpatient (REF) | payer MEDICARE ==
[~2022-03-31] MED LIST changes: +BACL10TA2 PO; +D32000CA PO; +GLIM1TAB4 PO; +POTA-151 PO
== END ==
LOC: M LAB REF 16:20
PROVIDERS: ATTEND Internal Medicine
DX: N39.0 Urinary tract infection, site not specified (principal)

== ENCOUNTER 2022-06-01 20:15 | Emergency (ER) | payer MEDICARE ==
[~2022-06-01] VITALS: Ht 157.5 cm; Wt 61.4 kg
[2022-06-02 00:33] VITALS: BP 181/83
== END 2022-06-02 00:49 | disposition left against medical advice (07) ==
LOC: M ED 20:15
DX: Z53.21 Procedure and treatment not carried out due to patient leaving prior to being seen by health care provider (principal)

== ENCOUNTER → 2022-06-02 | Outpatient (CLI) | payer MEDICARE | LOC: M WUC 15:30 | PROVIDERS: ATTEND Internal Medicine | DX: S92.345A Nondisplaced fracture of fourth metatarsal bone, left foot, initial encounter for closed fracture (principal); X58.XXXA Exposure to other specified factors, initial encounter; Y92.9 Unspecified place or not applicable ==

== ENCOUNTER → 2022-08-03 | Outpatient (CLI) | payer MEDICARE ==
[~2022-08-03] MED LIST changes: +INDA1.253 PO; -INDA125TA PO; +PROHANCE 279.3MG/ML 5ML VIAL ONE
== END ==
LOC: M PLAIMG 09:08
PROVIDERS: ATTEND Psychiatry & Neurology Neurology
DX: G35 Multiple sclerosis (principal)
CPT/HCPCS: 70553; 72156; 72157; A9576

== ENCOUNTER → 2022-08-10 | Outpatient (REF) | payer MEDICARE ==
[~2022-08-10] MED LIST changes: -PROHANCE 279.3MG/ML 5ML VIAL ONE
== END ==
LOC: M LAB REF 12:18
PROVIDERS: ATTEND Internal Medicine
DX: R30.0 Dysuria (principal)

== ENCOUNTER 2022-12-30 17:30 | Emergency (ER) | payer MEDICARE, OTHER ==
[~2022-12-30] VITALS: Ht 157.5 cm; Wt 59.1 kg
[2022-12-30] MEDS ORDERED: ACETAMINOPHEN TAB 650MG DOSE (2X325MG) PO ONE (19:05)
[2022-12-30] MEDS ORDERED: METOPROLOL SUCC (TopROL XL) 100MG *XL* TAB PO ONE (20:45)
[2022-12-30] MEDS ORDERED: LOSARTAN 50MG TABLET PO ONE (20:45)
[2022-12-30 20:58] VITALS: BP 221/109
[2022-12-30 21:05] VITALS: BP 220/102
== END 2022-12-30 21:13 | disposition home or self-care (01) ==
LOC: M ED 17:30
DX: S40.012A Contusion of left shoulder, initial encounter (principal); W22.09XA Striking against other stationary object, initial encounter; I10 Essential (primary) hypertension; J44.9 Chronic obstructive pulmonary disease, unspecified; E11.9 Type 2 diabetes mellitus without complications; K21.9 Gastro-esophageal reflux disease without esophagitis; Z79.01 Long term (current) use of anticoagulants; Z88.0 Allergy status to penicillin; Z88.5 Allergy status to narcotic agent; Z88.6 Allergy status to analgesic agent; Z88.8 Allergy status to other drugs, medicaments and biological substances; Z79.4 Long term (current) use of insulin; Z79.811 Long term (current) use of aromatase inhibitors; Z79.899 Other long term (current) drug therapy

== ENCOUNTER → 2023-01-01 | Outpatient (REF) | payer OTHER ==
[2023-01-01 17:16] LABS: FERRITIN 37.2 NG/ML (7.3-270.7); PERCENT SATURATION 12.9 % (13.2-45.0)
[2023-01-01 17:17] LABS: FOLATE 7.4 NG/ML (>5.4)
== END ==
LOC: M LAB REF 16:03
PROVIDERS: ATTEND Internal Medicine
DX: G93.40 Encephalopathy, unspecified (principal); D64.9 Anemia, unspecified

== ENCOUNTER → 2023-02-11 | Outpatient (REF) | payer OTHER | LOC: M LAB REF 17:57 | PROVIDERS: ATTEND Internal Medicine | DX: N39.0 Urinary tract infection, site not specified (principal); R30.0 Dysuria ==

== ENCOUNTER → 2023-04-15 | Outpatient (CLI) | payer OTHER ==
[~2023-04-15] MED LIST changes: -LOSA100T45 PO; +LOSA100T46 PO
== END ==
LOC: M RAD 11:45
PROVIDERS: ATTEND Internal Medicine
DX: R22.41 Localized swelling, mass and lump, right lower limb (principal); Z86.718 Personal history of other venous thrombosis and embolism

== ENCOUNTER → 2023-05-17 | Outpatient (CLI) | payer OTHER | LOC: M WUC 15:51 | PROVIDERS: ATTEND Internal Medicine | DX: R52 Pain, unspecified (principal) ==

== ENCOUNTER → 2023-06-01 | Outpatient (CLI) | payer MEDICARE | LOC: M RAD 09:32 | PROVIDERS: ATTEND Internal Medicine | DX: R10.11 Right upper quadrant pain (principal) ==

== ENCOUNTER → 2023-11-08 | Outpatient (CLI) | payer OTHER ==
[~2023-11-08] MED LIST changes: +EZET10TA58 PO; -MIRT-62 PO; +MIRT-88 PO; -ZETI10TA16 PO
== END ==
LOC: M PAIN 13:00
PROVIDERS: ATTEND Nurse Practitioner Family
DX: M79.10 Myalgia, unspecified site (principal); Z80.8 Family history of malignant neoplasm of other organs or systems; Z80.42 Family history of malignant neoplasm of prostate; Z80.52 Family history of malignant neoplasm of bladder; Z87.891 Personal history of nicotine dependence; Z88.0 Allergy status to penicillin; Z88.5 Allergy status to narcotic agent; Z88.6 Allergy status to analgesic agent; Z88.8 Allergy status to other drugs, medicaments and biological substances; Z79.82 Long term (current) use of aspirin; Z79.899 Other long term (current) drug therapy

== ENCOUNTER → 2024-03-16 | Outpatient (REF) | payer OTHER ==
[2024-03-16 17:49] LABS: AMORPHOUS SEDIMENT SMALL (NEGATIVE); APPEARANCE, URINE CLOUDY (CLEAR); BACTERIA, URINE AUTO NEGATIVE (NEGATIVE); BILIRUBIN, URINE AUTO NEGATIVE (NEGATIVE); BLOOD, URINE BLOOD NEGATIVE (NEGATIVE); CALCIUM OXALATE CRYSTALS SMALL; COLOR, URINE YELLOW (YELLOW); GLUCOSE, URINE (UA) AUTO 1+ mg/dL (NEGATIVE); KETONE, URINE AUTO NEGATIVE (NEGATIVE); LEUKOCYTE ESTERASE, URINE AUTO 2+ (NEGATIVE); MUCUS, URINE SMALL (NEGATIVE); NITRITE, URINE AUTO NEGATIVE (NEGATIVE); PROTEIN, URINE AUTO 1+ mg/dL (NEGATIVE); RBC, URINE AUTO 5 /HPF (0-3); SPECIFIC GRAVITY URINE AUTO 1.016 (1.002-1.035); SQUAMOUS EPITHELIAL CELL UR AU 3 /HPF (0-6); UROBILINOGEN, URINE AUTO 0.2 mg/dL (0.0-2.0); WBC, URINE AUTO 103 /HPF (0-3)
== END ==
LOC: M SMT 16:47
PROVIDERS: ATTEND Specialist
DX: R32 Unspecified urinary incontinence (principal)

== ENCOUNTER → 2024-04-14 | Outpatient (REF) | payer OTHER ==
[~2024-04-14] MED LIST changes: +ECOT81TA5 PO; -GLIM1TAB4 PO; +GLIM1TAB84 PO; +GLIM2TAB29 PO; +METH-855 PO; +MYRB25TA PO; +OMEP-173 PO; +ROSU5TAB40 PO; -ROSU5TAB5 PO; +SPIR-10 PO
== END ==
LOC: M LAB REF 16:27
PROVIDERS: ATTEND Internal Medicine
DX: R32 Unspecified urinary incontinence (principal); N18.32 Chronic kidney disease, stage 3b

== ENCOUNTER 2024-04-24 11:15 | Day surgery (SDC) | payer OTHER ==
[~2024-04-24] VITALS: Ht 154.9 cm; Wt 64.0 kg
[2024-04-24] MEDS ORDERED: LR 1,000 ML IV SCH ×3 (11:40→16:05)
[2024-04-24] MEDS ORDERED: HYDROMORPHONE HCL 0.5 MG/ 0.5 ML SYRINGE IV PRN ×2 (11:50→16:05)
[2024-04-24] MEDS ORDERED: ONDANSETRON 4MG 2ML VIAL IV PRN ×2 (11:50→16:05)
[2024-04-24] MEDS ORDERED: fentaNYL 100 MCG/2 ML INJECTION IV PRN ×2 (11:50→16:05)
[2024-04-24] MEDS ORDERED: oxyCODONE 5MG TAB PO PRN ×2 (11:50→16:05)
[2024-04-24] MEDS ORDERED: MIDAZOLAM INJ 2MG/2ML VIAL As Ordered ONE (12:48)
[2024-04-24] MEDS ORDERED: fentaNYL 100 MCG/2 ML INJECTION As Ordered ONE (12:48)
[2024-04-24] MEDS ORDERED: propofoL 200 MG/20 ML VIAL As Ordered ONE (12:48)
[2024-04-24] MEDS ORDERED: LIDOCAINE 2% 100MG/5ML SDV (FOR ANES.) As Ordered ONE (12:48)
[2024-04-24] MEDS ORDERED: dexmedeTOMIDine (4MCG/ML)200MCG/50ML BTL (PRECEDEX) As Ordered ONE (13:14)
[2024-04-24] MEDS ORDERED: hydrALAZINE 20MG/ML 1ML VIAL As Ordered ONE (13:47)
[2024-04-24] MEDS: ceFAZolin SOD 2 GM in IV 1 EA IV ONE (15:39)
[2024-04-24] MEDS: SODIUM BICARBONATE 8.4% INJ 50MEQ 50ML VIAL As Ordered ONE (15:40)
[2024-04-24] MEDS: LIDOCAINE 1% SDV 30ML VIAL As Ordered ONE (15:40)
[2024-04-24 17:40] VITALS: BP 146/68; TEMP 97.3; O2SAT 94
== END 2024-04-24 17:53 | disposition home or self-care (01) ==
LOC: M SDC 11:15
PROVIDERS: ATTEND Specialist
DX: N39.3 Stress incontinence (female) (male) (principal); Z88.5 Allergy status to narcotic agent; Z88.0 Allergy status to penicillin; Z88.8 Allergy status to other drugs, medicaments and biological substances
CPT/HCPCS: 64581; 76000; C1787; C1897; J0360; J2250; J3010

== ENCOUNTER 2024-05-18 09:38 | Day surgery (SDC) | payer OTHER ==
[~2024-05-18] VITALS: Ht 154.9 cm; Wt 63.5 kg
[~2024-05-18 09:38] MED LIST changes: +ACETAMINOPHEN 1000MG 100ML IV BAG As Ordered ONE; +AMLO10TA PO; +CEPH25SS PO; +D 50CAP2 PO; +MELA5TAB21 PO; +RA M10TA PO; +SUPE5000 PO; +ceFAZolin SOD 2 GM in IV 1 EA IV ONE; +dexmedeTOMIDine (4MCG/ML)200MCG/50ML BTL (PRECEDEX) As Ordered ONE; +fentaNYL 100 MCG/2 ML INJECTION As Ordered ONE; +propofoL 200 MG/20 ML VIAL As Ordered ONE; +propofoL 500 MG/50 ML VIAL As Ordered ONE
[2024-05-18] MEDS ORDERED: LR 1,000 ML IV SCH (10:55)
[2024-05-18] MEDS: LIDOCAINE 1% SDV 30ML VIAL As Ordered ONE (11:30)
[2024-05-18] MEDS: ceFAZolin 1GM VIAL As Ordered ONE (11:30)
[2024-05-18] MEDS ORDERED: HYDR-3713 PO (12:00)
[2024-05-18] MEDS ORDERED: CEPH25SS PO (12:00)
[2024-05-18 12:45] VITALS: BP 136/61; TEMP 97; O2SAT 96
== END 2024-05-18 13:05 | disposition home or self-care (01) ==
LOC: M SDC 09:38
PROVIDERS: ATTEND Urology
DX: R32 Unspecified urinary incontinence (principal); I73.9 Peripheral vascular disease, unspecified; I10 Essential (primary) hypertension; E78.5 Hyperlipidemia, unspecified; E11.9 Type 2 diabetes mellitus without complications; D64.9 Anemia, unspecified; Z87.891 Personal history of nicotine dependence; F41.9 Anxiety disorder, unspecified; F32.A Depression, unspecified; Z79.84 Long term (current) use of oral hypoglycemic drugs; Z79.2 Long term (current) use of antibiotics; Z79.899 Other long term (current) drug therapy; K58.8 Other irritable bowel syndrome; M81.0 Age-related osteoporosis without current pathological fracture; G35 Multiple sclerosis; K21.9 Gastro-esophageal reflux disease without esophagitis; Z88.5 Allergy status to narcotic agent; Z88.8 Allergy status to other drugs, medicaments and biological substances
CPT/HCPCS: 64590; 76000; C1778; J0131; J0690; J3010

== ENCOUNTER → 2024-12-14 | Outpatient (REF) | payer MEDICARE ==
[~2024-12-14] MED LIST changes: -ACETAMINOPHEN 1000MG 100ML IV BAG As Ordered ONE; +ASPI81CH33 PO; +BIOT1CAP2 PO; +HYDR-3713 PO; +NORV5TAB PO; -ROSU5TAB40 PO; +ROSU5TAB49 PO; +SULF400T14 PO; -ceFAZolin SOD 2 GM in IV 1 EA IV ONE; -dexmedeTOMIDine (4MCG/ML)200MCG/50ML BTL (PRECEDEX) As Ordered ONE; -fentaNYL 100 MCG/2 ML INJECTION As Ordered ONE; -propofoL 200 MG/20 ML VIAL As Ordered ONE; -propofoL 500 MG/50 ML VIAL As Ordered ONE
== END ==
LOC: M LAB REF 16:14
PROVIDERS: ATTEND Internal Medicine
DX: Z01.818 Encounter for other preprocedural examination (principal); N31.9 Neuromuscular dysfunction of bladder, unspecified; L08.9 Local infection of the skin and subcutaneous tissue, unspecified

== ENCOUNTER → 2024-12-14 | Outpatient (CLI) | payer MEDICARE | LOC: M WUC 14:09 | PROVIDERS: ATTEND Urology | DX: N32.81 Overactive bladder (principal); N31.9 Neuromuscular dysfunction of bladder, unspecified; L08.9 Local infection of the skin and subcutaneous tissue, unspecified; Z01.818 Encounter for other preprocedural examination ==

== ENCOUNTER 2024-12-21 06:11 | Day surgery (SDC) | payer MEDICARE, OTHER ==
[~2024-12-21] VITALS: Ht 154.9 cm; Wt 66.7 kg
[~2024-12-21 06:11] MED LIST changes: +CLINDAMYCIN 900 MG in IV 1 EA IV ONE
[2024-12-21] MEDS ORDERED: LIDOCAINE 2% 100MG/5ML SDV (FOR ANES.) As Ordered ONE (07:20)
[2024-12-21] MEDS ORDERED: fentaNYL 100 MCG/2 ML INJECTION As Ordered ONE (07:20)
[2024-12-21] MEDS ORDERED: propofoL 200 MG/20 ML VIAL As Ordered ONE (07:20)
[2024-12-21] MEDS ORDERED: MIDAZOLAM INJ 2MG/2ML VIAL As Ordered ONE (07:21)
[2024-12-21] MEDS: ceFAZolin SOD 2 GM in IV 1 EA IV ONE (07:28)
[2024-12-21] MEDS: LIDOCAINE 1% SDV 30ML VIAL As Ordered ONE (07:45)
[2024-12-21] MEDS: ceFAZolin 1GM VIAL As Ordered ONE (07:45)
[2024-12-21] MEDS ORDERED: KETOROLAC 60MG 2ML VIAL As Ordered ONE (07:48)
[2024-12-21] MEDS ORDERED: OXYB5TAB14 PO (08:09)
[2024-12-21] MEDS ORDERED: HYDR-3713 PO (08:09)
[2024-12-21] MEDS ORDERED: BACT800T5 PO (08:09)
[2024-12-21 08:50] VITALS: BP 167/81; TEMP 97; O2SAT 95
== END 2024-12-21 09:00 | disposition home or self-care (01) ==
LOC: M SDC 06:11
PROVIDERS: ATTEND Urology
DX: T83.590A Infection and inflammatory reaction due to implanted urinary neurostimulation device, initial encounter (principal); Z45.42 Encounter for adjustment and management of neurostimulator; I10 Essential (primary) hypertension; E78.5 Hyperlipidemia, unspecified; E11.9 Type 2 diabetes mellitus without complications; G35 Multiple sclerosis; I73.9 Peripheral vascular disease, unspecified; M81.0 Age-related osteoporosis without current pathological fracture; Z79.82 Long term (current) use of aspirin; Z79.899 Other long term (current) drug therapy; Z79.84 Long term (current) use of oral hypoglycemic drugs; Z87.891 Personal history of nicotine dependence; Z98.61 Coronary angioplasty status; K21.9 Gastro-esophageal reflux disease without esophagitis; D64.9 Anemia, unspecified; Z88.0 Allergy status to penicillin; Z88.5 Allergy status to narcotic agent; Z88.8 Allergy status to other drugs, medicaments and biological substances
CPT/HCPCS: 64585; 64595; 87070; 87075; 87077; 87186; 87205; J0690; J1885; J2250; J3010

== ENCOUNTER → 2025-03-07 | Outpatient (REF) | payer MEDICARE ==
[~2025-03-07] MED LIST changes: +BACT800T5 PO; -CLINDAMYCIN 900 MG in IV 1 EA IV ONE; +OXYB5TAB14 PO
[2025-03-07 19:05] LABS: APPEARANCE, URINE HAZY (CLEAR); BACTERIA, URINE AUTO NEGATIVE (NEGATIVE); BILIRUBIN, URINE AUTO NEGATIVE (NEGATIVE); BLOOD, URINE BLOOD 1+ (NEGATIVE); COLOR, URINE YELLOW (YELLOW); GLUCOSE, URINE (UA) AUTO 1+ mg/dL (NEGATIVE); KETONE, URINE AUTO NEGATIVE (NEGATIVE); LEUKOCYTE ESTERASE, URINE AUTO 2+ (NEGATIVE); MUCUS, URINE SMALL (NEGATIVE); NITRITE, URINE AUTO NEGATIVE (NEGATIVE); PROTEIN, URINE AUTO NEGATIVE (NEGATIVE); RBC, URINE AUTO 11 /HPF (0-3); SPECIFIC GRAVITY URINE AUTO 1.014 (1.002-1.035); SQUAMOUS EPITHELIAL CELL UR AU 1 /HPF (0-6); UROBILINOGEN, URINE AUTO 0.2 mg/dL (0.0-2.0); WBC, URINE AUTO 69 /HPF (0-3)
== END ==
LOC: M SMT 16:54
PROVIDERS: ATTEND Nurse Practitioner Family
DX: R32 Unspecified urinary incontinence (principal)

== ENCOUNTER → 2025-03-08 | Outpatient (REF) | payer MEDICARE ==
[2025-03-08 15:27] LABS: PTH INTACT 136.1 PG/ML (18.5-88.0)
[2025-03-08 15:29] LABS: C REACTIVE PROTEIN QUANTITATIV < 0.50 MG/DL (<1.0)
== END ==
LOC: M LAB REF 13:41
PROVIDERS: ATTEND Internal Medicine
DX: I50.23 Acute on chronic systolic (congestive) heart failure (principal); N18.32 Chronic kidney disease, stage 3b

== ENCOUNTER → 2025-04-12 | Outpatient (CLI) | payer MEDICARE ==
[~2025-04-12] MED LIST changes: +AMLO-751 PO; -AMLO10TA PO; +LIDO1ADH93 TD; -LIDO5DIS41 TD
== END ==
LOC: M WUC 11:50
PROVIDERS: ATTEND Nurse Practitioner Family
DX: Z01.818 Encounter for other preprocedural examination (principal)

== ENCOUNTER 2025-06-25 07:20 | Day surgery (SDC) | payer MEDICARE ==
[2025-05-14] MEDS: ceFAZolin SOD 2 GM IV ONCE IV ONE (06:00)
[~2025-06-25] VITALS: Ht 154.9 cm; Wt 68.5 kg
[~2025-06-25 07:20] MED LIST changes: +LIDOCAINE 2% 100 MG/5 ML SDV (FOR ANES.) As Ordered ONE; +XARE2.5T PO
[2025-06-25] MEDS ORDERED: MIDAZOLAM INJ 2 MG/2 ML VIAL As Ordered ONE (08:23)
[2025-06-25] MEDS ORDERED: ACETAMINOPHEN 1000MG/100ML IV BAG As Ordered ONE (08:25)
[2025-06-25] MEDS ORDERED: hydrALAZINE 20 MG/ML 1 ML VIAL As Ordered ONE (08:57)
[2025-06-25] MEDS: ceFAZolin SOD 2 GM IV ONCE IV ONE (09:00)
[2025-06-25] MEDS: LIDOCAINE 1% SDV 30 ML VIAL As Ordered ONE (09:32)
[2025-06-25] MEDS ORDERED: CEPH500C PO (09:55)
[2025-06-25 10:32] VITALS: TEMP 96.7; O2SAT 95
[2025-06-25 10:58] VITALS: BP 162/76
== END 2025-06-25 11:01 | disposition home or self-care (01) ==
LOC: M SDC 07:20
PROVIDERS: ATTEND Urology
DX: N32.81 Overactive bladder (principal); I10 Essential (primary) hypertension; R32 Unspecified urinary incontinence; E11.40 Type 2 diabetes mellitus with diabetic neuropathy, unspecified; G35 Multiple sclerosis; K58.9 Irritable bowel syndrome, unspecified; E78.00 Pure hypercholesterolemia, unspecified; Z79.01 Long term (current) use of anticoagulants; Z79.82 Long term (current) use of aspirin; Z79.899 Other long term (current) drug therapy; K21.9 Gastro-esophageal reflux disease without esophagitis; Z86.718 Personal history of other venous thrombosis and embolism; Z95.5 Presence of coronary angioplasty implant and graft; Z90.49 Acquired absence of other specified parts of digestive tract; Z88.5 Allergy status to narcotic agent; Z88.8 Allergy status to other drugs, medicaments and biological substances; Z91.048 Other nonmedicinal substance allergy status; Z88.0 Allergy status to penicillin; Z88.6 Allergy status to analgesic agent
CPT/HCPCS: 64581; 64590; 76000; C1778; C1787; C1894; J0131; J0360; J0690; J2250

== ENCOUNTER → 2025-08-10 | Outpatient (REF) | payer MEDICARE ==
[~2025-08-10] MED LIST changes: +CEPH500C PO; -LIDOCAINE 2% 100 MG/5 ML SDV (FOR ANES.) As Ordered ONE; +METH-1100 PO; -METH-855 PO
== END ==
LOC: M LAB REF 12:32
PROVIDERS: ATTEND Internal Medicine
DX: N31.9 Neuromuscular dysfunction of bladder, unspecified (principal); N18.30 Chronic kidney disease, stage 3 unspecified

== ENCOUNTER → 2025-08-23 | Outpatient (CLI) | payer MEDICARE ==
[~2025-08-23] MED LIST changes: +ASPI81TA26 PO; +CLOP75TA99 PO; +ISOVUE-370 76% 100 ML VIAL As Ordered ONE
== END ==
LOC: M RAD 14:07
PROVIDERS: ATTEND Surgery
DX: R10.84 Generalized abdominal pain (principal); R19.7 Diarrhea, unspecified; J43.9 Emphysema, unspecified; J98.11 Atelectasis; N28.1 Cyst of kidney, acquired; K44.9 Diaphragmatic hernia without obstruction or gangrene; K42.9 Umbilical hernia without obstruction or gangrene
CPT/HCPCS: 74177; Q9967